=== PATIENT | female | born 1950 | race Caucasian/White ===

== ENCOUNTER 2020-08-25 13:47 | Emergency (ER) | payer OTHER, MEDICARE ==
[~2020-08-25] VITALS: Ht 177.8 cm; Wt 104.3 kg
--- OUTSIDE RECORDS SUMMARY | ~2020-08-25 | XMS | Encounter Summary ---
Demographics + + + | Address | [address] [place] [address] RD | | | [place] [address] | + + + | Home Phone | | + + + | Preferred Language | Unknown | + + + | Marital Status | | + + + | Methodist Affiliation | Unknown | + + + | Race | White | + + + | Ethnic Group | Not or | + + + Author + + + | Author | [facility] | | | and [place] | + + + | Organization | [facility] | | | and [place] | + + + | Address | Unknown | + + + | Phone | Unavailable | + + + Support + + + + + | Name | Relationship | Address | Phone | + + + + + | José Antonio Craig | ECON | [address] | | | | | [place], [place] | | | | | [address] | | + + + + + | José Antonio Craig | ECON | [address] | | | | | [place], [place] | | | | | [address] | | + + + + + Care Team Providers + +------+ + | Care Educational Psychology Professor Name | Role | Phone | + +------+ + | Alverto Olvera MD | PCP | | + +------+ + Encounter Details +--------+ + + + + | Date | Type | Department | Care Team | Description | +--------+ + + + + | 05/03/ | Hospital | [facility] | Antolin Mederos | | | 2012 | Encounter | MED CTR SLEEP | MD Brett [address] | | | | | [place] [address] | [place] [facility] | | | | | [place], [place] | [place] [address] | | | | | [address] | [phone] | | | | | [phone] | | | +--------+ + + + + Social History + +-------+ +--------+------+ | Tobacco Use | Types | Packs/Day | Years | Date | | | | | Used | | + +-------+ +--------+------+ | Never Smoker | | | | | + +-------+ +--------+------+ + +---+---+---+ | Smokeless Tobacco: | | | | | Never Used | | | | + +---+---+---+ + + +---------+ + | Alcohol Use | Drinks/Week | oz/Week | Comments | + + +---------+ + | Yes | | | Rare | + + +---------+ + + + + | Sex Assigned at | Date Recorded | | | | + + + | Not on file | | + + + documented as of this encounter Medications at Time of Discharge + + + +---------+--------+ + | Medication | Sig | Dispensed | Refills | Start | End Date | | | | | | Date | | + + + +---------+--------+ + | latanoprost | Place 1 drop into | | 0 | | | | (XALATAN) 0.005% | both eyes nightly. | | | | | | ophthalmic solution | | | | | | + + + +---------+--------+ + | Levothyroxine | Take 1 capsule by | | 0 | | | | Sodium 125 MCG CAPS | mouth every morning | | | | | | | (before breakfast). | | | | | + + + +---------+--------+ + | Multiple | Take 1 tablet by | | 0 | | | | Vitamins-Minerals | mouth Daily. | | | | | | (CENTRUM SILVER | | | | | | | ULTRA WOMENS PO) | | | | | | + + + +---------+--------+ + | omeprazole | Take 20 mg by mouth | | 0 | | | | (PRILOSEC) 20 mg | Daily as needed. | | | | | | capsule | | | | | | + + + +---------+--------+ + | aspirin 325 mg | Take 325 mg by mouth | | 0 | | | | tablet | Daily. | | | | 5 | + + + +---------+--------+ + | escitalopram | Take 10 mg by mouth | | 0 | | | | (LEXAPRO) 20 mg | Daily. | | | | 0 | | tablet | | | | | | + + + +---------+--------+ + | metoprolol | Take 100 mg by mouth | | 0 | | | | (TOPROL-XL) 100 MG | Daily. | | | | 0 | | 24 hr tablet | | | | | | + + + +---------+--------+ + documented as of this encounter Plan of Treatment +--------+---------+ + + + | Date | Type | Specialty | Care Team | Description | +--------+---------+ + + + | 09/20/ | Office | Sleep Medicine | Dominik Tijerina PA | | | 2019 | Visit | | [address] | | | | | | [place] | | | | | | [phone] | | | | | | | | +--------+---------+ + + + documented as of this encounter Visit Diagnoses Not on filedocumented in this encounter"
--- OUTSIDE RECORDS SUMMARY | ~2020-08-25 | XMS | Encounter Summary ---
Demographics + + + | Address | [address] [place] [address] RD | | | [place] [address] | + + + | Home Phone | | + + + | Preferred Language | Unknown | + + + | Marital Status | | + + + | Moravian Affiliation | Unknown | + + + | Race | White | + + + | Ethnic Group | Not or | + + + Author + + + | Author | [facility] | | | and [place] | + + + | Organization | [facility] | | | and [place] | + + + | Address | Unknown | + + + | Phone | Unavailable | + + + Support + + + + + | Name | Relationship | Address | Phone | + + + + + | José Antonio Craig | ECON | [address] | | | | | [place], [place] | | | | | [address] | | + + + + + | José Antonio Craig | ECON | [address] | | | | | [place], [place] | | | | | [address] | | + + + + + Care Team Providers + +------+ + | Care Slabbing Machine Operator Name | Role | Phone | + +------+ + | Alverto Olvera MD | PCP | | + +------+ + Reason for Visit + + + | Reason | Comments | + + + | Medication Refill | Apixaban | + + + Encounter Details +--------+--------+ + + + | Date | Type | Department | Care Team | Description | +--------+--------+ + + + | 06/19/ | Refill | [facility] | Parul Winn | Medication Refill | | 2020 | | CARDIOLOGY [place] | [address] | (Apixaban) | | | | [address] | [address] | | | | | [address] | [place] [address] | | | | | [place] | [phone] | | | | | [address] | | | | | | [phone] | | | +--------+--------+ + + + Social History + +-------+ +--------+------+ | Tobacco Use | Types | Packs/Day | Years | Date | | | | | Used | | + +-------+ +--------+------+ | Former Smoker | | 0.25 | | | + +-------+ +--------+------+ + +---+---+---+ | Smokeless Tobacco: | | | | | Never Used | | | | + +---+---+---+ + + | Comments: smoked only 2 years in college | + + + + +---------+ + | Alcohol Use | Drinks/Week | oz/Week | Comments | + + +---------+ + | Yes | | | Rare | + + +---------+ + + + + | Sex Assigned at | Date Recorded | | | | + + + | Not on file | | + + + documented as of this encounter Plan [...] [place] | | | | | | [phone] | | | | | | | | +--------+---------+ + + + documented as of this encounter Visit Diagnoses Not on filedocumented in this encounter"
--- OUTSIDE RECORDS SUMMARY | ~2020-08-25 | XMS | Encounter Summary ---
Demographics + + + | Address | [address] [place] [address] RD | | | [place] [address] | + + + | Home Phone | | + + + | Preferred Language | Unknown | + + + | Marital Status | | + + + | Scientology Affiliation | Unknown | + + + | Race | White | + + + | Ethnic Group | Not or | + + + Author + + + | Author | [facility] | | | and [place] | + + + | Organization | [facility] | | | and [place] | + + + | Address | Unknown | + + + | Phone | Unavailable | + + + Support + + + + + | Name | Relationship | Address | Phone | + + + + + | José Antonio Craig | ECON | [address] | | | | | [place], [place] | | | | | [address] | | + + + + + | José Antonio Craig | ECON | [address] | | | | | [place], [place] | | | | | [address] | | + + + + + Care Team Providers + +------+ + | Care Middle School Resource Teacher Name | Role | Phone | + +------+ + | Alverto Olvera MD | PCP | | + +------+ + Reason for Visit + + + | Reason | Comments | + + + | Medication Refill | Metoprolol | + + + Encounter Details +--------+--------+ + + + | Date | Type | Department | Care Team | Description | +--------+--------+ + + + | 12/31/ | Refill | [facility] | [facility], | Medication Refill | | 2020 | | CARDIOLOGY [place] | MD Paola ADAMSON | (Metoprolol) | | | | [address] | [place], [place] | | | | | [place], [place] | [address] | | | | | [address] | | | | | | [phone] | | | +--------+--------+ + + + [...] | Visit | | [address] | | | | | | [place] | | | | | | [phone] | | | | | | | | +--------+---------+ + + + documented as of this encounter Visit Diagnoses Not on filedocumented in this encounter"
--- OUTSIDE RECORDS SUMMARY | ~2020-08-25 | XMS | Encounter Summary ---
Demographics + + + | Address | [address] [place] [address] RD | | | [place] [address] | + + + | Home Phone | | + + + | Preferred Language | Unknown | + + + | Marital Status | | + + + | Mu-Ism Affiliation | Unknown | + + + | Race | White | + + + | Ethnic Group | Not or | + + + Author + + + | Author | [facility] | | | and [place] | + + + | Organization | [facility] | | | and [place] | + + + | Address | Unknown | + + + | Phone | Unavailable | + + + Support + + + + + | Name | Relationship | Address | Phone | + + + + + | José Antonio Craig | ECON | [address] | | | | | [place], [place] | | | | | [address] | | + + + + + | José Antonio Craig | ECON | [address] | | | | | [place], [place] | | | | | [address] | | + + + + + Care Team Providers + +------+ + | Care Fire Safety Inspector Name | Role | Phone | + +------+ + | Alverto Olvera MD | PCP | | + +------+ + Reason for Visit + +--------+ + | Reason | Onset | Comments | | | Date | | + +--------+ + | Medication Refill | 03/07/ | Metoprolol, Atorvastatin | | | 2020 | | + +--------+ + Encounter Details +--------+--------+ + + + | Date | Type | Department | Care Team | Description | +--------+--------+ + + + | 03/07/ | Refill | [facility] | Jamee Carson, | Medication Refill | | 2019 | | CARDIOLOGY [place] | [address] | (Metoprolol, | | | | [address] | [place] | Atorvastatin) | | | | [place] | [id number] | | | | | [address] | | | | | | [phone] | | | +--------+--------+ + + + [...] [place] | | | | | | [phone] | | | | | | | | +--------+---------+ + + + documented as of this encounter Visit Diagnoses Not on filedocumented in this encounter"
--- OUTSIDE RECORDS SUMMARY | ~2020-08-25 | XMS | Encounter Summary ---
Demographics + + + | Address | [address] [place] [address] Rd | | | [place] [address] | + + + | Home Phone | | + + + | Preferred Language | Unknown | + + + | Marital Status | | + + + | Quaker Affiliation | Unknown | + + + | Race | White | + + + | Ethnic Group | Not or | + + + Author + + + | Author | [facility] | + + + | Organization | [facility] | + + + | Address | Unknown | + + + | Phone | Unavailable | + + + Support + + +---------+ + | Name | Relationship | Address | Phone | + + +---------+ + | José Antonio Craig | ECON | Unknown | | + + +---------+ + Care Team Providers + +------+ + | Care Bird Raiser Name | Role | Phone | + +------+ + | Alverto Olvera MD | PCP | | + +------+ + Encounter Details +--------+ + + + + | Date | Type | Department | Care Team | Description | +--------+ + + + + | 01/28/ | Hospital | Registration [facility] | | | | 2017 | Encounter | [address] | | | | | | [place], | | | | | | [place] [address] | | | +--------+ + + + + Social History + +-------+ +--------+------+ | Tobacco Use | Types | Packs/Day | Years | Date | | | | | Used | | + +-------+ +--------+------+ | Never Assessed | | | | | + +-------+ +--------+------+ + + + | Sex Assigned at | Date Recorded | | | | + + + | Not on file | | + + + documented as of this encounter Medications at Time of Discharge + + + +---------+ + + | Medication | Sig | Dispensed | Refills | Start | End Date | | | | | | Date | | + + + +---------+ + + | apixaban 5 mg oral | Take by mouth. | | 0 | 03/07/20 | | | tablet | | | | 16 | | + + + +---------+ + + | dilTIAZem XR 24 | TAKE ONE CAPSULE BY | | 0 | 12/11/19 | | | hour release 120 mg | MOUTH ONCE DAILY | | | 17 | | | oral capsule,ext | | | | | | | release degradable | | | | | | + + + +---------+ + + documented as of this encounter Plan of Treatment Not on filedocumented as of this encounter Visit Diagnoses Not on filedocumented in this encounter"
--- OUTSIDE RECORDS SUMMARY | ~2020-08-25 | XMS | Encounter Summary ---
Demographics + + + | Address | [address] [place] [address] RD | | | [place] [address] | + + + | Home Phone | | + + + | Preferred Language | Unknown | + + + | Marital Status | | + + + | Yazidism Affiliation | Unknown | + + + | Race | White | + + + | Ethnic Group | Not or | + + + Author + + + | Author | [facility] | | | and [place] | + + + | Organization | [facility] | | | and [place] | + + + | Address | Unknown | + + + | Phone | Unavailable | + + + Support + + + + + | Name | Relationship | Address | Phone | + + + + + | José Antonio Craig | ECON | [address] | | | | | [place], [place] | | | | | [address] | | + + + + + | José Antonio Craig | ECON | [address] | | | | | [place], [place] | | | | | [address] | | + + + + + Care Team Providers + +------+ + | Care Core Blower Name | Role | Phone | + +------+ + | Alverto Olvera MD | PCP | | + +------+ + Reason for Visit + + + | Reason | Comments | + + + | CPAP Follow Up | | + + + Encounter Details +--------+---------+ + + + | Date | Type | Department | Care Team | Description | +--------+---------+ + + + | 08/20/ | Office | [facility] | Dominik Tijerina PA | ANTHONY on CPAP (Primary | | 2017 | Visit | SLEEP DISORDER [address] | [address] | Dx) | | | | [address] | [place] | | | | | [place] [address] | [id number] | | | | | [phone] | | | +--------+---------+ + + + Social History + +-------+ [...] + + documented as of this encounter Last Filed Vital Signs + + + + + | Vital Sign | Reading | Time Taken | Comments | + + + + + | Blood Pressure | 98/68 | 08/20/2017 1:39 PM | | | | | PDT | | + + + + + | Pulse | 82 | 08/20/2017 1:39 PM | | | | | PDT | | + + + + + | Temperature | - | - | | + + + + + | Respiratory Rate | 14 | 08/20/2017 1:39 PM | | | | | PDT | | + + + + + | Oxygen Saturation | 96% | 08/20/2017 1:39 PM | | | | | PDT | | + + + + + | Inhaled Oxygen | - | - | | | Concentration | | | | + + + + + | Weight | 96.3 kg (212 lb 4.8 | 08/20/2017 1:39 PM | | | | oz) | PDT | | + + + + + | Height | 175.3 cm (5' 9") | 08/20/2017 1:39 PM | | | | | PDT | | + + + + + | Body Mass Index | 31.35 | 08/20/2017 1:39 PM | | | | | PDT | | + + + + + documented in this encounter Progress Notes Dominik Tijerina PA - 08/20/2017 2:00 PM PDT Subjective: Patient ID: Carley Craig is a 67 y.o. female. HPI last office visit: 08/20/2016 date of polysomnography: 04/06/2013 AHI: 34.7 RDI: 55.5 O2%: 80% with 114.1 minutes below 88% Machine type: ResMed S9 Mask type: nasal mask DME: [facility] [place] pressure: 8-15 cm (increased from 8-10 cm) Median: 11.2 cm 95%: 13.4 cm maxium: 14.5 cm Nights using CPAP: 364/365 % of nights >4 hours: 99% average usage (all nights): 8:16 average usage (nights used): 8:16 AHI: 1.2 Carley comes in for CPAP compliance. She continues to do well with her CPAP. She is wear ing it on a nightly basis for the duration of the night. She does not consider sleeping wit hout it. She is replacing her equipment as needed. She has had her CPAP "freeze up" a few times. She has been able to get it to work again by unplugging and plugging it back in. It has worked fine after this. She is not overly concerned about this because this has always worked. We will consider replacing her machine at her next appointment. She does not have any questions or concerns. I have discussed the download and results of the paperwork in detail. The download shows t hat her sleep apnea is controlled, with an AHI of 1.2. It also shows that her leaks are con trolled. BP 98/68 | Pulse 82 | Resp 14 | Ht 1.753 m (5' 9") | Wt 96.3 kg (212 lb 4.8 oz) | SpO2 96% | BMI 31.35 kg/m Review of Systems Objective: Physical Exam Assessment: Problem #1: OBSTRUCTIVE SLEEP APNEA ([id number]) This is controlled with CPAP. Her CPAP compliance is going well. Plan: 1. She is to continue with CPAP indefinitely. 2. I have recommended that she touch base with her medical supplier twice per year to ensu re that her equipment is satisfactory. I will follow up again in 1 year, sooner prn. At that time we will reassess with all appro piate paperwork. Fifteen minutes were spent [id number]-[id number], with the majority of time spent i n counseling. Dominik Tijerina PA-C cc: Alverto Olvera MD Bethanie Brown, Top Printing Press Operator - 08/20/2017 2:00 PM PDTFormatting of this note might be different from the orig inal. 08/20/17 1300 Gandhi Depression Inventory-II Depression Score 0- No Depression Insomnia Severity Index Insomnia Severity Index 7 [place] Sleepiness Scale Sitting and reading 1 Watching TV 1 Sitting, inactive in a public place (e.g. a theatre or a meeting) 1 As a passenger in a car for an hour without a break 2 Lying down to rest in the afternoon when circumstances permit 1 Sitting and talking to someone 0 Sitting quietly after a lunch without alcohol 1 In a car, while stopped for a few minutes in traffic 0 Total score 7 SF-36v2 Score PF 51.8 RP 52.66 BP 50.71 GH 48.43 VT 52.6 SF 57.34 RE 56.17 MH 58.72 PCS 48.44 MCS 58.71 documented in this enco unter Plan of Treatment +--------+---------+ + + + | Date | Type | Specialty | Care Team | Description | +--------+---------+ + + + | 09/20/ | Office | Sleep Medicine | Dominik Tijerina PA | | | 2019 | Visit | | [address] | | | | | | [place] | | | | | | [address] | | | | | | | | +--------+---------+ + + + documented as of this encounter Visit Diagnoses + + | Diagnosis | + + | ANTHONY on CPAP - Primary Obstructive sleep apnea (adult) (pediatric) | + + documented in this encounter
--- OUTSIDE RECORDS SUMMARY | ~2020-08-25 | XMS | Encounter Summary ---
Demographics + + + | Address | [address] [place] [address] RD | | | [place] [address] | + + + | Home Phone | | + + + | Preferred Language | Unknown | + + + | Marital Status | | + + + | Faith Affiliation | Unknown | + + + [...] | José Antonio Craig | ECON | [address] | | | | | [place], [place] | | | | | [address] | | + + + + + | José Antonio Craig | ECON | [address] | | | | | [place], [place] | | | | | [address] | | + + + + + Care Team Providers + +------+ + | Care Drying Oven Tender Name | Role | Phone | + +------+ + | Alverto Olvera MD | PCP | | + +------+ + Reason for Referral Diagnostic/Screening (Routine) + +--------+ + + + + | Status | Reason | Specialty | Diagnoses / | Referred By | Referred To | | | | | Procedures | Contact | Contact | + +--------+ + + + + | Authorized | | Diagnostic | Diagnoses | Risa Denis | | | | Radiology | Chronic | MD Jamee | [facility] | | | | | atrial | [address] | | | | | fibrillation | [facility] | [facility] [facility] | | | | | (HCC) | [address] | [place] | | | | | Procedures | [place], [place] | [address] | | | | | ECHO | [address] | Phone: | | | | | Complete | Phone: | [phone] | | | | | | [phone] | Fax: | | | | | | Fax: | [phone] | | | | | | [phone] | | + +--------+ + + + + Reason for Visit + + + | Reason | Comments | + + + | Annual Exam | | + + + Encounter Details +--------+---------+ + + + | Date | Type | Department | Care Team | Description | +--------+---------+ + + + | 01/26/ | Office | [facility] | Jamee Denis, | Chronic atrial | | 2020 | Visit | CARDIOLOGY [facility]O | [address] | fibrillation (HCC) | | | | [address] | [address] [place], [place] | (Primary Dx) | | | | [address] [facility] | [address] | | | | | [place] | | | | | | [address] | | | | | | [phone] | | | +--------+---------+ + + + [...] + + + | Blood Pressure | 112/66 | 01/26/2020 3:03 PM | | | | | PST | | + + + + + | Pulse | 83 | 01/26/2020 3:03 PM | | | | | PST | | + + + + + | Temperature | - | - | | + + + + + | Respiratory Rate | - | - | | + + + + + | Oxygen Saturation | 95% | 01/26/2020 3:03 PM | | | | | PST | | + + + + + | Inhaled Oxygen | - | - | | | Concentration | | | | + + + + + | Weight | 106.1 kg (234 lb) | 01/26/2020 3:03 PM | | | | | PST | | + + + + + | Height | 177.8 cm (5' 10") | 01/26/2020 3:03 PM | | | | | PST | | + + + + + | Body Mass Index | 33.58 | 01/26/2020 3:03 PM | | | | | PST | | + + + + + documented in this encounter Progress Notes Jamee Denis MD - 01/26/2020 3:00 PM PSTFormatting of this note might be different f rom the original. Date of visit: 01/26/2020 Primary Care Physician: Alverto Olvera MD CHIEF COMPLAINT: Chief Complaint Patient presents with Annual Exam HISTORY OF PRESENT ILLNESS: Carley is 69 y.o. here for follow-up visit. History of chronic atrial fibrillation on ant icoagulation and rate control strategy. Since prior evaluation no change in medication. Hemodynamically stable. Denies any chest pain or shortness of breath. Dyspnea only with climbing the stairs. Modestly active without any cardiac limitation. Continues to be on anticoagulation with no complications. Past medical history, SH, FH, and medications were reviewed in the chart. Medications: Outpatient Encounter Medications as of 01/26/2020 Medication Sig Dispense Refill albuterol (VENTOLIN HFA) 90 mcg/puff inhaler Inhale 1 puff into the lungs Daily as need ed for Wheezing. [DISCONTINUED] albuterol 90 mcg/puff inhaler Ventolin HFA 90 mcg/actuation aerosol inha ler-- prn apixaban (ELIQUIS) 5 mg tablet Take 5 mg by mouth 2 times daily. atorvaSTATin (LIPITOR) 40 mg tablet Take 40 mg by mouth nightly. [DISCONTINUED] brimonidine (ALPHAGAN P) 0.15% ophthalmic solution brimonidine 0.15 % ey e drops cetirizine (ZYRTEC) 10 mg tablet Take 10 mg by mouth Daily as needed for Allergies. [DISCONTINUED] diltiazem (CARDIZEM) 120 MG tablet Take 120 mg by mouth Daily. dilTIAZem (DILT-XR) 120 mg 24 hr capsule TAKE 1 CAPSULE BY MOUTH ONCE DAILY dorzolamide (TRUSOPT) 2% ophthalmic solution Place 2 drops into the left eye 2 times da caprice. escitalopram (LEXAPRO) 10 mg tablet [DISCONTINUED] escitalopram (LEXAPRO) 20 mg tablet Take 10 mg by mouth Daily. latanoprost (XALATAN) 0.005% ophthalmic solution Place 1 drop into both eyes nightly. [DISCONTINUED] levothyroxine (SYNTHROID) 125 mcg tablet TAKE 1 TABLET BY MOUTH ONCE ANN LY 3 Levothyroxine Sodium 125 MCG CAPS Take 1 capsule by mouth every morning (before break). loratadine (CLARITIN) 10 mg tablet Take 10 mg by mouth Daily. metoprolol succinate (TOPROL-XL) 100 mg ER tablet Take 1 tablet by mouth Daily for 30 d ays. 30 tablet 0 Multiple Vitamins-Minerals (CENTRUM SILVER ULTRA WOMENS PO) Take 1 tablet by mouth Leonel y. omeprazole (PRILOSEC) 20 mg capsule Take 20 mg by mouth Daily as needed. [DISCONTINUED] Timolol Maleate 0.5 % (DAILY) SOLN as needed. UNCODED MEDICATION Convert CPAP to purchase for ANTHONY (327.23) 1 Device 0 UNCODED MEDICATION Diagnosis: Obstructive Sleep Apnea ICD-9: 327.23 Length of Need: 99 Months 1 Device 0 UNCODED MEDICATION Wear while sleeping. 1 Device 0 No facility-administered encounter medications on file as of 01/26/2020. Allergies No Known Allergies REVIEW OF SYSTEMS: Constitutional: negative for fatigue. No fever, chills, and rigors. No report of weight ch mayo. HEENT: Negative for nosebleeds, ear discharge, nasal congestion or soar throat. Eyes: Wears glasses, redness, or secretion. Respiratory: Negative for cough, sputum production, hemoptysis, wheezing. Cardiovascular: As HPI. Gastrointestinal: Negative for nausea, vomiting, diarrhea, abdominal pain and blood in stoo l. Genitourinary: Negative for dysuria or hematuria. Musculoskeletal: Chronic arthritic pain. Skin: Negative for rash. Neurological: Negative for dizziness. No numbness. No recent falls. No slurred speech. Hematological: No significant bruising. Psychiatric/Behavioral: No depression or anxiety. PHYSICAL EXAM Vital Signs: BP 112/66 | Pulse 83 | Ht 1.778 m (5' 10") | Wt 106.1 kg (234 lb) | SpO2 95% | BMI 33. 58 kg/m GENERAL APPEARANCE: Alert, oriented, cooperative, no distress, appears stated age. HEENT: Extraocular movements were intact. No jaundice. Pupiles round and reactive. NECK: No JVD, lymphadenopathy. Carotid upstrokes normal. No carotid bruit heard. CARDIAC: Irregular irregular. CHEST: Normal bilateral symmetrical chest excursion.ackles or wheezing. No evidence of dull ness. ABDOMEN: Soft.No tenderness or guarding. No palpable organs. Active bowel sounds. EXTREMITIES: No lower extremities edema, cyanosis or clubbing. NEURO: Alert and oriented times three with no focal deficit. Cranial nerves are grossly no rmal. SKIN: Warm and dry. No rash. Psych: Normal affect and mood. DATA Lab Results Component Value Date/Time NA 142 11/28/2017 11:40 AM K 4.3 11/28/2017 11:40 AM CO2 26 11/28/2017 11:40 AM BUN 13 11/28/2017 11:40 AM CALCIUM 10.1 11/28/2017 11:40 AM No results found for: WBC, HGB, HCT, MCV, LABPLAT Lab Results Component Value Date ALT 19 11/28/2017 CHOL 142 11/28/2017 TRIG 102 11/28/2017 HDL 54.8 11/28/2017 GLUF 86 11/28/2017 EC01/26/2020 Ordered and reviewed by myself showed atrial fibrillation with controlled ventricular rate. Last Echo: 2016: Reported withEF 60-65 percent. RV normal size and function. Moderate left atrial enla rgement. Mild ANGELICA. Mild to moderate MR. Mild TR. no pulmonary hypertension. Last Stress test: Last Cath: Last US carotid: ASSESSMENT: Patient is 69 y.o. with 1. Chronic atrial fibrillation on rate control strategy. CHADSVASc score of 3. 2. moderate mitral regurgitation. No signs of congestive heart failure. 3. Hypertension. 4. Dyslipidemia. Plan: Patient continues to be asymptomatic at this time. We will continue on rate control strateg y with diltiazem and metoprolol. Continue with atorvastatin. Continue with Apixaban. No change in medication today. Repeat echocardiogram to evaluate mitral regurgitation. Follow-up in 1 year or earlier if needed. *This report has been prepared using a voice recognition system. The report was reviewed fo r accuracy, however, sound-alike word errors, addition and/or deletions may occur. If there is any question about this report please contact me. Jamee Denis MD, MPH documented in this encounter Plan of Treatment +--------+---------+ + + + | Date | Type | Specialty | Care Team | Description | +--------+---------+ + + + | 09/20/ | Office | Sleep Medicine | Dominik Tijerina PA | | 2019 | Visit | | [address] | | | | | | [place] | | | | | | [id number] | | | | | | | | +--------+---------+ + + + + + +--------+ + + | Name | Type | Priori | Associated Diagnoses | Order Schedule | | | | ty | | | + + +--------+ + + | ECHO Complete | Echocardiog | Routin | Chronic atrial | Expected: | | | aries | e | fibrillation (HCC) | 01/26/2020, Expires: | | | | | | 01/26/2021 | + + +--------+ + + documented as of this encounter Procedures + +--------+ + + + | Procedure Name | Priori | Date/Time | Associated Diagnosis | Comments | | | ty | | | | + +--------+ + + + | ECG 12 LEAD | Routin | 01/26/2020 | Chronic atrial | Results for this | | | e | 3:12 PM | fibrillation (HCC) | procedure are in the | | | | PST | | results section. | + +--------+ + + + documented in this encounter Results ECG 12 lead (01/26/2020 3:12 PM PST) + + + + + + | Component | Value | Ref Range | Performed | Pathologist | | | | | At | Signature | + + + + + + | VENTRICULAR | 65 | BPM | [facility] | | | RATE EKG | | | | | + + + + + + | ATRIAL RATE | 63 | BPM | [facility] | | + + + + + + | QRS | 82 | ms | [facility] | | | DURATION | | | | | + + + + + + | Q-T | 372 | ms | [facility] | | | INTERVAL | | | | | + + + + + + | Q-T | 386 | ms | [facility] | | | INTERVAL | | | | | | (CORRECTED) | | | | | + + + + + + | QRS AXIS | 9 | degrees | [facility] | | + + + + + + | T AXIS | 25 | degrees | [facility] | | + + + + + + | INTERPRETAT | Atrial | | [facility] | | | ION TEXT | fibrillationAbnormal | | | | | | ECGWhen compared with | | | | | | ECG of 09-DEC-2018 | | | | | | 13:50,No significant | | | | | | change was | | | | | | foundConfirmed by | | | | | | Jamee Denis MD | | | | | | [id number]) on 01/27/2020 | | | | | | 4:31:50 PM | | | | + + + + + + + + | Specimen | + + | | + + + + + | Narrative | Performed At | + + + | | | + + + + +---------+ + + | Performing | Address | City/State/Zipcode | Phone Number | | Organization | | | | + +---------+ + + | [facility] | | | | + +---------+ + + documented in this encounter Visit Diagnoses + + | Diagnosis | + + | Chronic atrial fibrillation (HCC) - Primary Atrial fibrillation | + + documented in this encounter
--- OUTSIDE RECORDS SUMMARY | ~2020-08-25 | XMS | Encounter Summary ---
Demographics + + + | Address | [address] [place] [address] RD | | | [place] [address] | + + + | Home Phone | | + + + | Preferred Language | Unknown | + + + | Marital Status | | + + + | Anabaptism Affiliation | Unknown | + + + | Race | White | + + + | Ethnic Group | Not or | + + + Author + + + | Author | [facility] | | | and [place] | + + + | Organization | [facility] | | | and [place] | + + + | Address | Unknown | + + + | Phone | Unavailable | + + + Support + + + + + | Name | Relationship | Address | Phone | + + + + + | José Antonio Craig | ECON | [address] | | | | | [place], [place] | | | | | [address] | | + + + + + | José Antonio Craig | ECON | [address] | | | | | [place], [place] | | | | | [address] | | + + + + + Care Team Providers + +------+ + | Care Outside Machinist Supervisor Name | Role | Phone | + +------+ + | Alverto Olvera MD | PCP | | + +------+ + Encounter Details +--------+ + + + + | Date | Type | Department | Care Team | Description | +--------+ + + + + | 11/28/ | Orders Only | [facility] | Parul Winn | | | 2017 | | CARDIOLOGY [place] | DANIEL [address] | | | | | [address] | [address] | | | | | [place], [place] | [place] [address] | | | | | [address] | [phone] | | | | | [phone] | | | +--------+ + + + [...] | +--------+---------+ + + + | 09/20/ Office | Sleep Medicine | Dominik Tijerina PA | | | 2019 | Visit | | [address] | | | | | | [place] | | | | | | [address] | | | | | | | | +--------+---------+ + + + documented as of this encounter Procedures + +--------+ + + + | Procedure Name | Priori | Date/Time | Associated Diagnosis | Comments | | | ty | | | | + +--------+ + + + | LIPID PANEL | Routin | 11/28/2017 | | Results for this | | | e | 11:40 AM | | procedure are in the | | | | PST | | results section. | + +--------+ + + + | COMPREHENSIVE | Routin | 11/28/2017 | | Results for this | | METABOLIC PANEL | e | 11:40 AM | | procedure are in the | | | | PST | | results section. | + +--------+ + + + documented in this encounter Results Lipid Panel (11/28/2017 11:40 AM PST) + +-------+ + + + | Component | Value | Ref Range | Performed | Pathologist | | | | | At | Signature | + +-------+ + + + | Cholesterol | 142 | 200 mg/dL | EXTERNAL | | | | | | LAB | | + +-------+ + + + | Triglycerid | 102 | 30 - 150 mg/dL | EXTERNAL | | | es | | | LAB | | + +-------+ + + + | HDL | 54.8 | 40 mg/dl | EXTERNAL | | | | | | LAB | | + +-------+ + + + | LDL, | 67 | 100 mg/dL | EXTERNAL | | | Calculated | | | LAB | | + +-------+ + + + | LDl/HDL | | | EXTERNAL | | | Ratio | | | LAB | | + +-------+ + + + | Chol/HDL | 2.6 | 4.44 | EXTERNAL | | | Ratio | | | LAB | | + +-------+ + + + | VLDL | 20 | 4 - 40 mg/dL | EXTERNAL | | | | | | LAB | | + +-------+ + + + | Non HDL | 87 | 130 | EXTERNAL | | | Chol. | | | LAB | | | (LDL+VLDL) | | | | | + +-------+ + + + + + | Specimen | + + | Blood specimen | | (specimen) | + + + +---------+ + + | Performing | Address | City/State/Zipcode | Phone Number | | Organization | | | | + +---------+ + + | EXTERNAL LAB | | | | + +---------+ + + Comprehensive Metabolic Panel (11/28/2017 11:40 AM PST) + + + + + + | Component | Value | Ref Range | Performed | Pathologist | | | | | At | Signature | + + + + + + | Glucose, | 86 | 70 - 100 mg/dL | EXTERNAL | | | Fasting | | | LAB | | + + + + + + | BUN | 13 | 6 - 23 mg/dL | EXTERNAL | | | | | | LAB | | + + + + + + | Creatinine | 0.60 (A) | 0.70 - 1.25 | EXTERNAL | | | | | mg/dL | LAB | | + + + + + + | BUN/Creatin | 21.7 | 6.0 - 28.6 | EXTERNAL | | | ine Ratio | | | LAB | | + + + + + + | Calcium | 10.1 | 8.4 - 10.2 | EXTERNAL | | | | | mg/dL | LAB | | + + + + + + | Protein, | 6.1 | 6.0 - 8.0 g/dL | EXTERNAL | | | Total | | | LAB | | + + + + + + | Albumin | 4.0 | 3.5 - 5.0 | EXTERNAL | | | | | | LAB | | + + + + + + | Globulin | 2.1 | 1.8 - 3.5 | EXTERNAL | | | | | | LAB | | + + + + + + | A/G Ratio | 1.9 | 1.1 - 2.4 | EXTERNAL | | | | | | LAB | | + + + + + + | Bilirubin | 0.8 | 0.0 - 1.2 mg/dL | EXTERNAL | | | Total | | | LAB | | + + + + + + | ALP, | 88 | 31 - 130 | EXTERNAL | | | External | | | LAB | | + + + + + + | ALT | 19 | 7 - 52 U/L | EXTERNAL | | | | | | LAB | | + + + + + + | AST | 12 (A) | 13 - 39 U/L | EXTERNAL | | | | | | LAB | | + + + + + + | Na | 142 | 132 - 143 | EXTERNAL | | | | | mmol/L | LAB | | + + + + + + | K | 4.3 | 3.6 - 5.1 | EXTERNAL | | | | | mmol/L | LAB | | + + + + + + | Cl | 105 | 95 - 112 mmol/L | EXTERNAL | | | | | | LAB | | + + + + + + | CO2 | 26 | 19 - 31 mmol/L | EXTERNAL | | | | | | LAB | | + + + + + + | Anion Gap | 15.3 | 7 - 21 mmol/L | EXTERNAL | | | | | | LAB | | + + + + + + | Estimated | 99 | 60 mg/dL | EXTERNAL | | | GFR | | | LAB | | + + + + + + + + | Specimen | + + | Blood specimen | | (specimen) | + + + +---------+ + + | Performing | Address | City/State/Zipcode | Phone Number | | Organization | | | | + +---------+ + + | EXTERNAL LAB | | | | + +---------+ + + documented in this encounter Visit Diagnoses Not on filedocumented in this encounter"
--- OUTSIDE RECORDS SUMMARY | ~2020-08-25 | XMS | Encounter Summary ---
Demographics + + + | Address | [address] [place] [address] RD | | | [place] [address] | + + + | Home Phone | | + + + | Preferred Language | Unknown | + + + | Marital Status | | + + + | Anabaptism Affiliation | Unknown | + + + | Race | White | + + + | Ethnic Group | Not or | + + + Author + + + | Author | [facility] | | | and [place] | + + + | Organization | [facility] | | | and [place] | + + + | Address | Unknown | + + + | Phone | Unavailable | + + + Support + + + + + | Name | Relationship | Address | Phone | + + + + + | José Antonio Craig | ECON | [address] | | | | | [place], [place] | | | | | [address] | | + + + + + | José Antonio Craig | ECON | [address] | | | | | [place], [place] | | | | | [address] | | + + + + + Care Team Providers + +------+ + | Care Evp Operations Name | Role | Phone | + +------+ + | Alverto Olvera MD | PCP | | + +------+ + Reason for Visit +--------+ + | Reason | Comments | +--------+ + | Apnea | | +--------+ + Encounter Details +--------+---------+ + + + | Date | Type | Department | Care Team | Description | +--------+---------+ + + + | 05/17/ | Office | [facility] | Antolin Mederos | ANTHONY (obstructive | | 2012 | Visit | SLEEP DISORDER [address] | sleep apnea) | | | | [address] | [address] [place] | (Primary Dx) | | | | [place] [address] | [place] [address] | | | | | [phone] | [phone] | | | | | | | [...] + + + | Blood Pressure | 108/72 | 05/17/2013 2:34 PM | | | | | PDT | | + + + + + | Pulse | 70 | 05/17/2013 2:34 PM | | | | | PDT | | + + + + + | Temperature | - | - | | + + + + + | Respiratory Rate | 14 | 05/17/2013 2:34 PM | | | | | PDT | | + + + + + | Oxygen Saturation | - | - | | + + + + + | Inhaled Oxygen | - | - | | | Concentration | | | | + + + + + | Weight | 100.8 kg (222 lb 4.8 | 05/17/2013 2:34 PM | | | | oz) | PDT | | + + + + + | Height | - | - | | + + + + + | Body Mass Index | 32.83 | 03/18/2013 2:00 PM | | | | | PDT | | + + + + + documented in this encounter Patient Instructions Patient Instructions Antolin Mederos Jr., MD - 05/17/2013 2:41 PM PDTYou have Obstructive Sleep Apnea which we will treat with a CPAP night-time breathing machine. Try to wear the C PAP at all times while sleeping. 13 2:43 PM PDT documented in this encounter Progress Notes Antolin Mederos Jr., MD - 05/17/2013 2:48 PM PDTThe patient underwent PSG guided PAP Titr ation on 05/03/2013 where it appears that CPAP in the 8-9cm will control ANTHONY and oxygen desatu ration. I've discussed this with her. A: ANTHONY - I've briefly reviewed this again for her. The mechanisms of action of CPAP in carine ting ANTHONY were discussed in detail with the patient. I've discussed desensitization technique s as well as some imagery techniques that can be helpful. I've discussed the use of heated h umidity. And I've discussed our PAP Compliance Clinic. P: CPAP 8-10cm F/u in 2 days in PAP Compliance Clinic. Today, 15 minutes was spent face to face with the patient; the majority of time was spent bharathi eng. CC: Dr. Pérez Olvera documented in th is encounter Plan of Treatment +--------+---------+ + + + | Date | Type | Specialty | Care Team | Description | +--------+---------+ + + + | 09/20/ | Office | Sleep Medicine | Dominik Tijerina PA | | | 2019 | Visit | | [address] | | | | | | [place] | | | | | | [address] | | | | | | | | +--------+---------+ + + + documented as of this encounter Visit Diagnoses + + | Diagnosis | + + | ANTHONY (obstructive sleep apnea) - Primary Obstructive sleep apnea (adult) (pediatric) | + + documented in this encounter"
--- OUTSIDE RECORDS SUMMARY | ~2020-08-25 | XMS | Encounter Summary ---
Demographics + + + | Address | [address] [place] [address] RD | | | [place] [address] | + + + | Home Phone | | + + + | Preferred Language | Unknown | + + + | Marital Status | | + + + | Caodaism Affiliation | Unknown | + + + | Race | White | + + + | Ethnic Group | Not or | + + + Author + + + | Author | [facility] | | | and [place] | + + + | Organization | [facility] | | | and [place] | + + + | Address | Unknown | + + + | Phone | Unavailable | + + + Support + + + + + | Name | Relationship | Address | Phone | + + + + + | José Antonio Craig | ECON | [address] | | | | | [place], [place] | | | | | [address] | | + + + + + | José Antonio Craig | ECON | [address] | | | | | [place], [place] | | | | | [address] | | + + + + + Care Team Providers + +------+ + | Care Radio Recorder Name | Role | Phone | + +------+ + | Alverto Olvera MD | PCP | | + +------+ + Reason for Visit +---------+ + | Reason | Comments | +---------+ + | Snoring | | +---------+ + Encounter Details +--------+---------+ + + + | Date | Type | Department | Care Team | Description | +--------+---------+ + + + | 03/18/ | Office | [facility] | Antolin Mederos | ANTHONY (obstructive | | 2012 | Visit | SLEEP DISORDER [address] | [address] | sleep apnea) | | | | [address] | [address] | (Primary Dx); | | | | [place] [address] | [place] [address] | Anxiety; | | | | [phone] | [phone] | Hypothyroidism; HBP | | | | | | (high blood | | | | | | pressure); GERD | | | | | | (gastroesophageal | | | | | | reflux disease); | | | | | | Paroxysmal atrial | | | | | | fibrillation (HCC); | | | | | | Glaucoma; Colon | | | | | | polyps | +--------+---------+ + + + Social History [...] + + + | Blood Pressure | 124/72 | 03/18/2013 2:00 PM | | | | | PDT | | + + + + + | Pulse | 57 | 03/18/2013 2:00 PM | | | | | PDT | | + + + + + | Temperature | - | - | | + + + + + | Respiratory Rate | 14 | 03/18/2013 2:00 PM | | | | | PDT | | + + + + + | Oxygen Saturation | - | - | | + + + + + | Inhaled Oxygen | - | - | | | Concentration | | | | + + + + + | Weight | 98.6 kg (217 lb 4.8 | 03/18/2013 2:00 PM | | | | oz) | PDT | | + + + + + | Height | 175.3 cm (5' 9") | 03/18/2013 2:00 PM | | | | | PDT | | + + + + + | Body Mass Index | 32.09 | 03/18/2013 2:00 PM | | | | | PDT | | + + + + + documented in this encounter Patient Instructions Patient Instructions Bethanie Sanches - 03/18/2013 2:00 PM PDT March 18, 2013 Carley Craig [address] [place] [address] Dear Carley: Thank you for enrolling in [employer]. Please follow the instructions below to view your [facility] online medical record. [employer] allows you to send secure messages to your doctor, view you r test results, renew your prescriptions, schedule appointments, and more. How Do I Sign Up? 1. In your Internet browser, go to [email or web address] 2. Click on the "Sign up with your activation code" button in the "New User?" box. This belgica l take you to the New Member Sign Up page. 3. Enter your [employer] activation code exactly as it appears below. You will not need to use this code after you sign up. If you do not sign up before the expiration date, you must req uest a new code through your [place] or [place] participating clinic. [employer] Access Code: [email or web address] Expires: 05/17/2013 14:00 4. Fill in the last four digits of your Social Security Number (xxxx) and Date of (mm /dd/yyyy) and click Next. 5. Create a [place] [employer] username. Your username cannot be changed, so think of one t hat is secure and easy to remember. 6. Create a [employer] password. You can change your password at any time. 7. Enter your security question and answer. This can be used at a later time if you forget your password. Click Next. 8. Enter your e-mail address. You will receive e-mail notification when new information is available in [employer]. 9. Click "Sign In". You may now view your medical record. Additional Information If you have questions, you can email [email or web address] or call [phone] to talk to our [place] care team. Please remember, [employer] should NOT be used for urg ent needs. For all medical emergencies, call [phone]. Sincerely, Antolin Mederos Jr., MD I think you probably have Obstructive Sleep Apnea for which we will arrange for an overnigh t sleep study. During NREM (nondream) sleep the skeletal muscles relax and in REM (dream) sleep the skelet al muscles are paralyzed. The muscles that support the back of the throat (the tongue in par ticular) also relax during NREM sleep and are paralyzed in REM sleep and when this occurs, t he back of the throat collapses some. In some patients with a smaller back of the throat, th is can result in obstruction to the flow of air. This is fundamentally what occurs in ANTHONY. T his can cause repetitive obstruction to the flow of air all night long cause a person with O SA to awaken repeatedly at night to "open" the back of the throat. If airflow is significant ly restricted, blood oxygen levels can fall. The combination of the repetitive awakenings at night and low oxygen levels lead to numerous other physiologic abnormalities which can resu lt in nocturia, nocturnal heartburn, night sweats, morning dry mouth, morning headache, and daytime fatigue/sleepiness. Additionally, ANTHONY can cause hypertension and it dramatically inc reases the risk of heart disease, heart attack, and stroke. It may play a causative role in obesity and AODM. Untreated ANTHONY also dramatically increases the risk of fall asleep car acci dents. Treatment can help with all of these issues. documented in this encounter Progress Notes Antolin Mederos Jr., MD - 03/18/2013 2:17 PM PDTFormatting of this note might be differen t from the original. Racquel Kristin [facility] [place] [address] Ref: Alverto Olvera, * CC: Chief Complaint Patient presents with Snoring History of the Present Illness:This is a 62 year old female who is referred for sleep medic ine consultation by Dr. Pérez Olvera because of snoring and possible ANTHONY. Other significant me dical issues include paroxysmal atrial fibrillation, HBP, hypothyroidism, astham, osteopenia , and GERD. The patient's records (from Dr. Olvera office) are reviewed. The patient is int erviewed and examined. 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 Bedtime is usually about 10p m and rise time is about 6:30am. On off days she might awaken at 8:30am. She estimates a lat ency to sleep onset of 1-2 hours. She has nocturia at least 2-3 times a night and she can us ually get back to sleep rather easily. She does have night sweats. She rarely has nocturnal heartburn. She sometimes awakens with a dry mouth and she does awaken with nasal/sinus conge stion which she attributes to allergies. She occasionally awakes with morning headaches. She dreams in her sleep. She does sometimes seem to dream immediately upon falling asleep. She doesn't walk in her sleep (she did as a child). She denies dream enactment while asleep. She denies sleep paralysis. She denies restlessness in her legs or arms at night. Her has never told her that h er legs or arms kick or twitch rhythmically at night after she falls asleep. She does snore. He hasn't told her that she stops breathing at night. She thinks the snorin g is worse when she sleeps supine. She has awakened herself snoring and snorting. In the daytime she feels sleepy and tired. She occasionally naps on weekends. If she naps s he might sleep 2 hours and this makes her feel better after a while but initially she feels groggy upon awakening. She gets drowsy driving but has never been in a fall asleep accident. She denies cataplexy. She consumes caffeine rarely. She first developed an episode of atrial fibrillation in about 2004. She had another episod e in May of 2012. Past Medical History: has a past medical history of Paroxysmal atrial fibrillation; GERD ( gastroesophageal reflux disease); HBP (high blood pressure); ANTHONY (obstructive sleep apnea); Anxiety; Hypothyroidism; Glaucoma; and Colon polyps. has past surgical history that includes Tonsillectomy and adenoidectomy (1954); Appendecto my (1960); tyra and bso (1998); Thyroidectomy (2004); and Cataract Removal (2010). No Known Allergies Current Outpatient Prescriptions Medication Sig Dispense Refill Levothyroxine Sodium 125 MCG CAPS Take 1 capsule by mouth every morning (before breakfa st). metoprolol (TOPROL-XL) 100 MG 24 hr tablet Take 100 mg by mouth Daily. escitalopram (LEXAPRO) 20 mg tablet Take 10 mg by mouth Daily. omeprazole (PRILOSEC) 20 mg capsule Take 20 mg by mouth every morning (before breakfast ). latanoprost (XALATAN) 0.005% ophthalmic solution Place 1 drop into both eyes nightly. aspirin 325 mg tablet Take 325 mg by mouth Daily. Multiple Vitamins-Minerals (CENTRUM SILVER ULTRA WOMENS PO) Take 1 tablet by mouth Leonel y. Family Medical History: family history includes Arthritis in her brother; Diabetes in her m other; and Other (See Comment) in her brother. indicated that her mother is . She indicated that her father is . She indic ated that her sister is . She indicated that her brother is alive. She indicated tejas t both of her sons are alive. 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 Weight gain 20-30 pounds over last several years. Eyes:Denies sudden loss of vision, diplopia, blurred vision. ENT: Denies vertigo, bleeding gums or poor dental repair. Gradual loss of hearing and ti nnitus in left ear (hearing aid). Nasal/sinus stuffiness. Card:Denies exertional substernal chest heaviness, leg pain. Resp: Allergic asthma. GI: Denies nausea, vomiting, abdominal pain, diarrhea, constipation, hematochezia. Has rey d colon polyps. : Denies dysuria, pyuria, hematuria, frequency, incontinence MS: Right hip pain and mild back pain. Neuro: Denies seizures, strokes, loss of consciousness, dysesthesias or paresthesias, syn cope, concussions. Psych: Denies: Depression/anxiety in control. Endocrine: Denies heat or cold intolerance Heme: Denies easy bruising or prolonged bleeding. Allergic/Immunologic: seasonal allergies PE: BP 124/72 | Pulse 57 | Resp 14 | Ht 1.753 m (5' 9") | Wt 98.567 kg (217 lb 4.8 oz) | BM I 32.09 kg/m2 Gen: obese, alert and not in acute distress HEENT:Head: Normocephalic, no lesions, without obvious abnormality. Eye: Normal external eye, conjunctiva, lids cornea, MARY. Nose: Normal external nose, mucus membranes and septum. Pharynx: Dental Hygiene adequate. Normal buccal mucosa. Tonsillar grade 0; Mallampati 2-3. Neck / Thyroid: Supple, no masses, nodes, nodules or enlargement. Pulm: lungs clear to auscultation Card: regular rate and rhythm, S1, S2 normal, no murmur, click, rub or gallop GI: soft and normal bowel sounds : Not examined Rectal: Not Examined Ext: peripheral pulses normal, no pedal edema, no clubbing or cyanosis Skin: Not examined Neuro:Grossly normal Psych:age appropriate and casually dressedoriented to time, place and person, mood and aff ect are within normal limits, pt is a good historian; no memory problems were noted Heme: No cervical LN Assessment: ANTHONY: I suspect that the patient likely has ANTHONY and that much of her daytime sle epiness and fatigue is related to this. I've discussed this with her in detail. This may als o be playing a role in her Paroxysmal Atrial Fibrillation. I've discussed PSG. And I've disc ussed treatment options, emphasizing CPAP. Paroxysmal Atrial Fibrillation: Untreated ANTHONY is likely contributin g to this. Plan: PSG with f/u thereafter. Today, 45 minutes was spent face to face with the patient; the majority of time was spent c ounseling. CC: Dr. Pérez Olvera Patient Instructions March 18, 2013 Carley Craig [address] [facility] [place] [address] Dear Carley: Thank you for enrolling in [employer]. Please follow the instructions below to view your [facility] online medical record. [employer] allows you to send secure messages to your doctor, view you r test results, renew your prescriptions, schedule appointments, and more. How Do I Sign Up? 1. In your Internet browser, go to [email or web address] 2. Click on the "Sign up with your activation code" button in the "New User?" box. This belgica l take you to the New Member Sign Up page. 3. Enter your [employer] activation code exactly as it appears below. You will not need to use this code after you sign up. If you do not sign up before the expiration date, you must req uest a new code through your [place] or [place] participating clinic. [employer] Access Code: [email or web address] Expires: 05/17/2013 14:00 4. Fill in the last four digits of your Social Security Number (xxxx) and Date of (mm /dd/yyyy) and click Next. 5. Create a [place] [employer] username. Your username cannot be changed, so think of one t hat is secure and easy to remember. 6. Create a [employer] password. You can change your password at any time. 7. Enter your security question and answer. This can be used at a later time if you forget your password. Click Next. 8. Enter your e-mail address. You will receive e-mail notification when new information is available in [employer]. 9. Click "Sign In". You may now view your medical record. Additional Information If you have questions, you can email [email or web address] or call [phone] to talk to our [place] care team. Please remember, [employer] should NOT be used for urg ent needs. For all medical emergencies, call [phone]. Sincerely, Antolin Mederos Jr., MD I think you probably have Obstructive Sleep Apnea for which we will arrange for an overnigh t sleep study. During NREM (nondream) sleep the skeletal muscles relax and in REM (dream) sleep the skelet al muscles are paralyzed. The muscles that support the back of the throat (the tongue in par ticular) also relax during NREM sleep and are paralyzed in REM sleep and when this occurs, t he back of the throat collapses some. In some patients with a smaller back of the throat, th is can result in obstruction to the flow of air. This is fundamentally what occurs in ANTHONY. T his can cause repetitive obstruction to the flow of air all night long cause a person with O SA to awaken repeatedly at night to "open" the back of the throat. If airflow is significant ly restricted, blood oxygen levels can fall. The combination of the repetitive awakenings at night and low oxygen levels lead to numerous other physiologic abnormalities which can resu lt in nocturia, nocturnal heartburn, night sweats, morning dry mouth, morning headache, and daytime fatigue/sleepiness. Additionally, ANTHONY can cause hypertension and it dramatically inc reases the risk of heart disease, heart attack, and stroke. It may play a causative role in obesity and AODM. Untreated ANTHONY also dramatically increases the risk of fall asleep car acci dents. Treatment can help with all of these issues. imon, Antolin Salgado Jr., MD - 03/18/2013 2:17 PM PDTFormatting of this note might be different from the origin al. 03/18/13 1400 Gandhi Depression Inventory-II Depression Score 4 - Minimal depression Insomnia Severity Index Insomnia Severity Index 12 [place] Sleepiness Scale Sitting and reading 2 Watching TV 2 Sitting, inactive in a public place (e.g. a theatre or a meeting) 3 As a passenger in a car for an hour without a break 3 Lying down to rest in the afternoon when circumstances permit 3 Sitting and talking to someone 0 Sitting quietly after a lunch without alcohol 2 In a car, while stopped for a few minutes in traffic 0 Total score 15 SF-36v2 Score PF 48.61 RP 54.4 BP 46.06 GH 38.63 VT 39.6 SF 56.85 RE 48.1 MH 47.19 PCS 47.5 MCS 47.54 documented in t his encounter Miscellaneous Notes Miscellaneous - RENE WEI BENNY - 03/18/2013 12:00 AM PDT documented in this encounter Plan of Treatment +--------+---------+ + + + | Date | Type | Specialty | Care Team | Description | +--------+---------+ + + + | 09/20/ | Office | Sleep Medicine | Dominik Tijerina PA | | | 2019 | Visit | | [address] | | | | | | [place] | | | | | | [id number] | | | | | | | | +--------+---------+ + + + documented as of this encounter Visit Diagnoses + + | Diagnosis | + + | ANTHONY (obstructive sleep apnea) - Primary Obstructive sleep apnea (adult) (pediatric) | + + | Anxiety Anxiety state, unspecified | + + | Hypothyroidism Unspecified hypothyroidism | + + | HBP (high blood pressure) Unspecified essential hypertension | + + | GERD (gastroesophageal reflux disease) Esophageal reflux | + + | Paroxysmal atrial fibrillation (HCC) Atrial fibrillation | + + | Glaucoma Unspecified glaucoma | + + | Colon polyps Benign neoplasm of colon | + + documented in this encounter
--- OUTSIDE RECORDS SUMMARY | ~2020-08-25 | XMS | Clinical Summary ---
Demographics + + + | Address | [address] [place] [address] RD | | | [place] [address] | + + + | Home Phone | | + + + | Preferred Language | Unknown | + + + | Marital Status | | + + + | Jainism Affiliation | Unknown | + + + | Race | White | + + + | Ethnic Group | Not or | + + + Author + + + | Author | [facility] | | | and [place] | + + + | Organization | [facility] | | | and [place] | + + + | Address | Unknown | + + + | Phone | Unavailable | + + + Support + + + + + | Name | Relationship | Address | Phone | + + + + + | José Antonio Craig | ECON | [address] | | | | | [place], [place] | | | | | [address] | | + + + + + | José Antonio Craig | ECON | [address] | | | | | [place], [place] | | | | | [address] | | + + + + + Care Team Providers + +------+ + | Care Public Welfare Director Name | Role | Phone | + +------+ + | Alverto Olvera MD | PCP | | + +------+ + Allergies No Known Allergies Medications + + + +---------+------+------+-------+ | Medication | Sig | Dispensed | Refills | Star | End | Statu | | | | | | t | Date | s | | | | | | Date | | | + + + +---------+------+------+-------+ | Levothyroxine | Take 1 capsule by | | 0 | | | Activ | | Sodium 125 MCG CAPS | mouth every morning | | | | | e | | | (before breakfast). | | | | | | + + + +---------+------+------+-------+ | omeprazole | Take 20 mg by mouth | | 0 | | | Activ | | (PRILOSEC) 20 mg | Daily as needed. | | | | | e | | capsule | | | | | | | + + + +---------+------+------+-------+ | latanoprost | Place 1 drop into | | 0 | | | Activ | | (XALATAN) 0.005% | both eyes nightly. | | | | | e | | ophthalmic solution | | | | | | | + + + +---------+------+------+-------+ | Multiple | Take 1 tablet by | | 0 | | | Activ | | Vitamins-Minerals | mouth Daily. | | | | | e | | (CENTRUM SILVER | | | | | | | | ULTRA WOMENS PO) | | | | | | | + + + +---------+------+------+-------+ | UNCODED | Wear while sleeping. | 1 | 0 | 06/1 | | Activ | | MEDICATIONIndication | | Device | | 20 | | e | | s: ANTHONY (obstructive | | | | 13 | | | | sleep apnea) | | | | | | | + + + +---------+------+------+-------+ | UNCODED | Diagnosis: | 1 | 0 | 07/0 | | Activ | | MEDICATIONIndication | Obstructive Sleep | Device | | 07/20 | | e | | s: Obstructive sleep | ApneaICD-9: | | | 13 | | | | apnea (adult) | 327.23Length of | | | | | | | (pediatric) | Need: 99 Months | | | | | | + + + +---------+------+------+-------+ | UNCODED MEDICATION | Convert CPAP to | 1 | 0 | 08/2 | | Activ | | | purchase for ANTHONY | Device | | 7/20 | | e | | | (327.23) | | | 13 | | | + + + +---------+------+------+-------+ | cetirizine | Take 10 mg by mouth | | 0 | | | Activ | | (ZYRTEC) 10 mg | Daily as needed for | | | | | e | | tablet | Allergies. | | | | | | + + + +---------+------+------+-------+ | dorzolamide | Place 2 drops into | | 0 | | | Activ | | (TRUSOPT) 2% | the left eye 2 times | | | | | e | | ophthalmic solution | daily. | | | | | | + + + +---------+------+------+-------+ | albuterol | Inhale 1 puff into | | 0 | | | Activ | | (VENTOLIN HFA) 90 | the lungs Daily as | | | | | e | | mcg/puff inhaler | needed for Wheezing. | | | | | | + + + +---------+------+------+-------+ | escitalopram | | | 0 | 05/0 | | Activ | | (LEXAPRO) 10 mg | | | | 6/20 | | e | | tablet | | | | 19 | | | + + + +---------+------+------+-------+ | loratadine | Take 10 mg by mouth | | 0 | | | Activ | | (CLARITIN) 10 mg | Daily. | | | | | e | | tablet | | | | | | | + + + +---------+------+------+-------+ | metoprolol | Take 1 tablet by | 90 | 3 | 04/0 | 04/0 | Activ | | succinate | mouth Daily. | tablet | | /20 | /20 | e | | (TOPROL-XL) 100 mg | | | | 20 | 21 | | | ER tablet | | | | | | | + + + +---------+------+------+-------+ | atorvaSTATin | Take 1 tablet by | 90 | 3 | 04/0 | 04/0 | Activ | | (LIPITOR) 40 mg | mouth nightly. | tablet | | / | 06/19 | e | | tablet | | | | 20 | 21 | | + + + +---------+------+------+-------+ | dilTIAZem | Take 1 capsule by | 90 | 3 | 2 | 2 | Activ | | (DILT-XR) 120 mg 24 | mouth Daily. | capsule | | 08/20 | 08/20 | e | | hr capsule | | | | 20 | 21 | | + + + +---------+------+------+-------+ | apixaban (ELIQUIS) | Take 1 tablet by | 180 | 3 | 06/01 | 2 | Activ | | 5 mg tablet | mouth 2 times daily. | tablet | | 12/20 | 12/20 | e | | | | | | 20 | 21 | | + + + +---------+------+------+-------+ Active Problems + + + | Problem | Noted Date | + + + | Calculus of gallbladder with cholecystitis | 06/28/2019 | + + + | Dyspeptic diarrhea | 06/28/2019 | + + + | Hypercalcemia | 06/28/2019 | + + + | Mild intermittent asthma without complication | 06/16/2017 | + + + | Acquired hypothyroidism | 06/16/2017 | + + + | Obstructive sleep apnea on CPAP | 06/16/2017 | + + + | Chronic atrial fibrillation | 06/16/2017 | + + + | Pseudophakia, both eyes | 03/14/2017 | + + + | Low tension glaucoma | 03/14/2017 | + + + | Essential hypertension | 08/31/2015 | + + + + + | Overview: Last Assessment & Plan: Hypertension, controlled, | | continue current meds at current doses (diltiazem, metoprolol). | + + + +---+ | ANTHONY (obstructive sleep apnea) | | + +---+ | Anxiety | | + +---+ | Hypothyroidism | | + +---+ | HBP (high blood pressure) | | + +---+ | GERD (gastroesophageal reflux disease) | | + +---+ | Paroxysmal atrial fibrillation | | + +---+ | Glaucoma | | + +---+ | Colon polyps | | + +---+ Encounters +--------+---------+ + + + | Date | Type | Specialty | Care Team | Description | +--------+---------+ + + + | 07/18/ | Office | Sleep Medicine | Dominik Tijerina PA | ANTHONY on CPAP (Primary | | 2019 | Visit | | | Dx) | +--------+---------+ + + + | 06/19/ | Refill | Cardiology | Parul Winn | Medication Refill | | 2019 | | | DANIEL Azevedo | (Apixaban) | +--------+---------+ + + + | 05/28/ | Refill | Cardiology | Jamee Carson, | Medication Refill | | 2019 | | | | (Diltiazem) | +--------+---------+ + + + from Last 3 Months Immunizations + + + + | Name | Administration Dates | Next Due | + + + + | INFLUENZA 64 Y [place] >, | 09/15/2018 | | | TRIVALENT HIGH-DOSE | | | + + + + | PNEUMOCOCCAL | 04/04/2016 | | | POLYSACCHARIDE | | | | 23-VALENT (PPSV23) | | | + + + + Family History + + +------+ + | Medical History | Relation | Name | Comments | + + +------+ + | Arthritis | Brother | | | + + +------+ + | Other (see comment) | Brother | | ANTHONY on CPAP | + + +------+ + | Heart failure | Father | | | + + +------+ + | Atrial fibrillation | Mother | | | + + +------+ + | Diabetes | Mother | | | + + +------+ + | Diabetes, NIDDM | Mother | | | + + +------+ + | Stroke | Mother | | | + + +------+ + | Heart disease | Paternal | | | | | Grandfath | | | | | er | | | + + +------+ + | Heart disease | Paternal | | | | | Grandmoth | | | | | er | | | + + +------+ + + +------+ + + | Relation | Name | Status | Comments | + +------+ + + | Brother | | Alive | | + +------+ + + | Father | | | IA, heart failure | | | | (Age | | | | | 66) | | + +------+ + + | Mother | | | A-Fib., DMII, CVA | | | | (Age | | | | | 85) | | + +------+ + + | Paternal Grandfather | | | heart disease | | | | (Age | | | | | 82) | | + +------+ + + | Paternal Grandmother | | | heart disease | | | | (Age | | | | | 72) | | + +------+ + + | Sister | | | leukemia | | | | (Age | | | | | 13) | | + +------+ + + | Son | | Alive | | + +------+ + + | Son | | Alive | | + +------+ + + Social History + +-------+ +--------+------+ [...] on file | | + + + Last Filed Vital Signs + + + + + | Vital Sign | Reading | Time Taken | Comments | + + + + + | Blood Pressure | 126/70 | 07/18/2020 3:10 PM | | | | | PDT | | + + + + + | Pulse | 89 | 07/18/2020 3:10 PM | | | | | PDT | | + + + + + | Temperature | - | - | | + + + + + | Respiratory Rate | 16 | 07/18/2020 3:10 PM | | | | | PDT | | + + + + + | Oxygen Saturation | 97% | 07/18/2020 3:10 PM | | | | | PDT | | + + + + + | Inhaled Oxygen | - | - | | | Concentration | | | | + + + + + | Weight | 104.3 kg (229 lb 15 | 07/18/2020 3:10 PM | | | | oz) | PDT | | + + + + + | Height | 177.8 cm (5' 10") | 01/26/2020 3:03 PM | | | | | PST | | + + + + + | Body Mass Index | 32.99 | 01/26/2020 3:03 PM | | | | | PST | | + + + + + Plan of Treatment +--------+---------+ + + + | Date | Type | Specialty | Care Team | Description | +--------+---------+ + + + | 09/20/ | Office | Sleep Medicine | Dominik Tijerina PA | | | 2019 | Visit | | [address] | | | | | | [place] | | | | | | [address] | | | | | | | | +--------+---------+ + + + + + + + + | Health Maintenance | Due Date | Last | Comments | | | | Done | | + + + + + | Hepatitis C | | | | | Screening | 9 | | | + + + + + | Med Mgmt: HCT | | | | | | 9 | | | + + + + + | Med Mgmt: HGB | | | | | | 9 | | | + + + + + | Med Mgmt: TSH | | | | | | 9 | | | + + + + + | Medication | | | | | Management | 9 | | | + + + + + | Vaccine: | | | | | Dtap/Tdap/Td (1 - | 8 | | | | Tdap) | | | | + + + + + | Colorectal Cancer | | | | | Screening | 9 | | | | (Colonoscopy) | | | | + + + + + | Vaccine: Zoster (1 | | | | | of 2) | 9 | | | + + + + + | Breast Cancer | | | | | Screening | 4 | | | + + + + + | Adult Annual | | | | | Wellness Visit | 5 | | | + + + + + | Med Mgmt: Cr | | 11/28/20 | | | | 8 | 17 | | + + + + + | Vaccine: Influenza | | 10/18/20 | | | (#1) | 0 | 19, | | | | | 09/15/20 | | | | | 18 | | + + + + + | Vaccine: | Completed | 04/04/20 | | | Pneumococcal 65+ | | 16 | | + + + + + Results Not on filefrom Last 3 Months Insurance + +--------+ +--------+ +---------+--------+ | Payer | Benefi | Subscriber | Effect | Phone | Address | Type | | | t Plan | ID | micaela | | | | | | / | | Dates | | | | | | Group | | | | | | + +--------+ +--------+ +---------+--------+ | MEDICARE | MEDICA | [id number] | 03/01/20 | [phone] | | Medica | | | RE | | 14-Pre | 5 | | re | | | PART A | | sent | | | | | | AND B | | | | | | + +--------+ +--------+ +---------+--------+ | STATE [employer] | STATE | [id number] | 08/02/20 | [phone] | | Indemn | | | FARM | 7 | 14-Pre | 2 | | ity | | | MDCR | | sent | | | | | | SUPPL | | | | | | + +--------+ +--------+ +---------+--------+ | MEDICARE | MEDICA | [id number] | 03/01/20 | [phone] | | Medica | | | RE | | 14-Pre | 5 | | re | | | PART A | | sent | | | | | | AND B | | | | | | + +--------+ +--------+ +---------+--------+ | STATE [employer] | STATE | [id number] | 03/01/20 | [phone] | | Indemn | | | FARM | 7 | 14-Pre | 2 | | ity | | | MDCR | | sent | | | | | | SUPPL | | | | | | + +--------+ +--------+ +---------+--------+ + +--------+ +--------+ + + | Guarantor Name | Accoun | Relation to | Date | Phone | Billing Address | | | t Type | Patient | of | | | | | | | | | | + +--------+ +--------+ + + | Carley Craig | Person | Self | [birth year] | [address] | | | al/Fam | | 1950 | [phone] | [place], [place] | | | caprice | | | 1 (Home) | [address] | | | | | | [phone] | | | | | | | 9 (Work) | | + +--------+ +--------+ + + | Carley Craig | Person | Self | [birth year] | | [address] | | | al/Fam | | 1950 | [phone] | [place], [place] | | | caprice | | | 1 (Home) | [address] | | | | | | [phone] | | | | | | | 9 (Work) | | + +--------+ +--------+ + + Advance Directives + + + + + | Type | Date Recorded | Patient | Explanation | | | | Cushion Filler | | + + + + + | Power of | | | | | Shampoo Assistant | | | | + + + + + | Advance | | | | | Directive | | | | + + + + +
--- OUTSIDE RECORDS SUMMARY | ~2020-08-25 | XMS | Encounter Summary ---
Demographics + + + | Address | [address] [place] [address] RD | | | [place] [address] | + + + | Home Phone | | + + + | Preferred Language | Unknown | + + + | Marital Status | | + + + | Anabaptism Affiliation | Unknown | + + + | Race | White | + + + | Ethnic Group | Not or | + + + Author + + + | Author | [facility] | | | and [place] | + + + | Organization | [facility] | | | and [place] | + + + | Address | Unknown | + + + | Phone | Unavailable | + + + Support + + + + + | Name | Relationship | Address | Phone | + + + + + | José Antonio Craig | ECON | [address] | | | | | [place], [place] | | | | | [address] | | + + + + + | José Antonio Craig | ECON | [address] | | | | | [place], [place] | | | | | [address] | | + + + + + Care Team Providers + +------+ + | Care Director Of Nurses Registry Name | Role | Phone | + +------+ + | Alverto Olvera MD | PCP | | + +------+ + Reason for Visit + + + | Reason | Comments | + + + | Medication Refill | Atorvastatin | + + + Encounter Details +--------+--------+ + + + | Date | Type | Department | Care Team | Description | +--------+--------+ + + + | 02/27/ | Refill | [facility] | Campos Pabon, | Medication Refill | | 2020 | | [facility]ARDIOLOGY [facility] | [address] | (Atorvastatin) | | | | [address] | [place] [address] | | | | | [place], [place] | [phone] | | | | | [address] | | | | | | [phone] | | | +--------+--------+ + + + [...] [place] | | | | | | [id number] | | | | | | | | +--------+---------+ + + + documented as of this encounter Visit Diagnoses Not on filedocumented in this encounter"
--- OUTSIDE RECORDS SUMMARY | ~2020-08-25 | XMS | Encounter Summary ---
Demographics + + + | Address | [address] [place] [address] RD | | | [place] [address] | + + + | Home Phone | | + + + | Preferred Language | Unknown | + + + | Marital Status | | + + + | Yarsanism Affiliation | Unknown | + + + | Race | White | + + + | Ethnic Group | Not or | + + + Author + + + | Author | [facility] | | | and [place] | + + + | Organization | [facility] | | | and [place] | + + + | Address | Unknown | + + + | Phone | Unavailable | + + + Support + + + + + | Name | Relationship | Address | Phone | + + + + + | José Antonio Craig | ECON | [address] | | | | | [place], [place] | | | | | [address] | | + + + + + | José Antonio Craig | ECON | [address] | | | | | [place], [place] | | | | | [address] | | + + + + + Care Team Providers + +------+ + | Care Canvas Repairer Name | Role | Phone | + +------+ + | Alverto Olvera MD | PCP | | + +------+ + Reason for Visit +--------+ + | Reason | Comments | +--------+ + | Apnea | | +--------+ + Encounter Details +--------+---------+ + + + | Date | Type | Department | Care Team | Description | +--------+---------+ + + + | 07/27/ | Office | [facility] [place] | Dominik Tijerina PA | ANTHONY on CPAP (Primary | | 2012 | Visit | SLEEP DISORDER [address] | [address] | Dx) | | | | [address] | [place] | | | | | [place] [address] | [address] | | | | | [phone] | | | +--------+---------+ + + + [...] + + + | Blood Pressure | 118/72 | 07/27/2013 3:33 PM | | | | | PDT | | + + + + + | Pulse | 64 | 07/27/2013 3:33 PM | | | | | PDT | | + + + + + | Temperature | - | - | | + + + + + | Respiratory Rate | 16 | 07/27/2013 3:33 PM | | | | | PDT | | + + + + + | Oxygen Saturation | - | - | | + + + + + | Inhaled Oxygen | - | - | | | Concentration | | | | + + + + + | Weight | 98.8 kg (217 lb 14.4 | 07/27/2013 3:33 PM | | | | oz) | PDT | | + + + + + | Height | - | - | | + + + + + | Body Mass Index | 32.18 | 03/18/2013 2:00 PM | | | | | PDT | | + + + + + documented in this encounter Progress Notes Bethanie Sanches - 07/27/2013 3:28 PM PDT 07/27/13 1500 Gandhi Depression Inventory-II Depression Score 3 - Minimal depression Insomnia Severity Index Insomnia Severity Index 6 [place] Sleepiness Scale Sitting and reading 1 Watching TV 1 Sitting, inactive in a public place (e.g. a theatre or a meeting) 1 As a passenger in a car for an hour without a break 1 Lying down to rest in the afternoon when circumstances permit 2 Sitting and talking to someone 0 Sitting quietly after a lunch without alcohol 1 In a car, while stopped for a few minutes in traffic 0 Total score 7 SF-36v2 Score PF 48.61 RP 56.85 BP 50.29 GH 48.17 VT 58.33 SF 56.85 RE 55.88 MH 58.46 PCS 48.65 MCS 59.94 Dominik Rodrigues PA - 3:01 PM PDT Subjective: Patient ID: Carley Craig is a 63 y.o. female. HPI last office visit was: 05/20/2013 date of polysomnography: 04/06/2013 AHI: 34.7 RDI: 55.5 O2%: 80% with 114.1 minutes below 88% Machine type: ResMed S9 with nasal mask obtained from: [facility] [place] pressure: 8-10 cm 95%: 10.0 cm maxium: 10.0 cm Nights using CPAP: 30/30 average usage (all nights): 7:41 average usage (nights used): 7:41 AHI: 1.6 Carley comes in for CPAP compliance. She continues to do well with her CPAP. She is wear ing it on a nightly basis for the duration of the night. She has not considered sleeping wi thout it. She has noticed that she is sleeping better and has felt more rested during the d ay with more energy. She does not have any questions or concerns. We discussed when she is able to replace her equipment. I gave her a handout that shows wh en her insurance will accept her replacing each item. I have discussed the download and results of the paperwork in detail. She is unchanged or improved in all categories, with no areas of concern. The download shows that her sleep butter grader ea is well controlled, with an AHI of 1.6. It also shows that her leaks are well controlled . I have discussed the download and results of the paperwork in detail. She is unchanged or improved in nearly all categories, with no areas of concern. The download shows that her sl eep apnea is well controlled, with an AHI of 1.6. It also shows that her leaks are well con trolled. It shows that he is wearing his CPAP >4 hours for 100% of the nights during the 30 nights. Review of Systems Objective: Physical Exam Assessment: Problem #1: OBSTRUCTIVE SLEEP APNEA (327.23) This is well controlled with CPAP. Her CPAP compliance is going well. She has been waking with a mildly dry mouth in the morning. Plan: She is to continue with CPAP indefinitely. She is to increase her humidity further if nece ssary. If her dry mouth continues, she is to wear her chin strap or consider a full face ma sk. We have faxed a prescription to [facility] to convert her ResMed S9 to purchase. se is weari ng her CPAP >4 hours for 100% of the nights during the last 30 nights. I will follow up again in 1 year, sooner prn. At that time we will reassess with all appro piate paperwork. Fifteen minutes were spent [id number], with the majority of time spent i n counseling. Dominik Tijerina PA-C cc: Dr. Pérez Olvera documented in this enco unter Miscellaneous Notes Miscellaneous - ONBASE SCAN [facility] - 07/27/2013 12:00 AM PDT iscellaneous - ONBASE SCAN [facility] - 07/27/2013 12:00 AM PDTEle ctronically signed by Benny Hoffman at 07/29/2013 8:54 AM PDTdocumented in this encounter Plan of Treatment +--------+---------+ + + + | Date | Type | Specialty | Care Team | Description | +--------+---------+ + + + | 09/20/ | Office | Sleep Medicine | Dominik Tijerina PA | | | 2020 | Visit | | [address] | | | | | | [place] | | | | | | [address] | | | | | | | | +--------+---------+ + + + documented as of this encounter Visit Diagnoses + + | Diagnosis | + + | ANTHONY on CPAP - Primary Obstructive sleep apnea (adult) (pediatric) | + + documented in this encounter"
--- OUTSIDE RECORDS SUMMARY | ~2020-08-25 | XMS | Encounter Summary ---
Demographics + + + | Address | [address] [place] [address] RD | | | [place] [address] | + + + | Home Phone | | + + + | Preferred Language | Unknown | + + + | Marital Status | | + + + | Oriental Orthodox Affiliation | Unknown | + + + | Race | White | + + + | Ethnic Group | Not or | + + + Author + + + | Author | [facility] | | | and [place] | + + + | Organization | [facility] | | | and [place] | + + + | Address | Unknown | + + + | Phone | Unavailable | + + + Support + + + + + | Name | Relationship | Address | Phone | + + + + + | José Antonio Craig | ECON | [address] | | | | | [place], [place] | | | | | [address] | | + + + + + | José Antonio Craig | ECON | [address] | | | | | [place], [place] | | | | | [address] | | + + + + + Care Team Providers + +------+ + | Care Research Management Associate Name | Role | Phone | + [...] + + | 02/27/ | Refill | [facility] | [facility] | Medication Refill | | 2020 | | CARDIOLOGY [place] | MD Paola ADAMSON | (Metoprolol) | | | | [address] | [place], [place] | | | | | [place], [place] | [address] | | | | | [address] | | | | | | [phone] | | | +--------+--------+ + + + [...] [place] | | | | | | [phone] | | | | | | | | +--------+---------+ + + + documented as of this encounter Visit Diagnoses Not on filedocumented in this encounter"
--- OUTSIDE RECORDS SUMMARY | ~2020-08-25 | XMS | Clinical Summary ---
Demographics + + + | Address | [address] [place] [address] Rd | | | [place] [address] | + + + | Home Phone | | + + + | Preferred Language | Unknown | + + + | Marital Status | | + + + | Mandaeism Affiliation | Unknown | + + + | Race | White | + + + | Ethnic Group | Not or | + + + Author + + + | Author | [facility] | + + + | Organization | [facility] | + + + | Address | Unknown | + + + | Phone | Unavailable | + + + Support + + +---------+ + | Name | Relationship | Address | Phone | + + +---------+ + | José Antonio Craig | ECON | Unknown | | + + +---------+ + Care Team Providers + +------+ + | Care Resume Specialist Name | Role | Phone | + +------+ + | Alverto Olvera MD | PCP | | + +------+ + Source Comments NEIL is fully live on both [facility] and [facility] Allergies No Known Allergies Medications + + + +---------+------+------+-------+ | Medication | Sig | Dispensed | Refills | Star | End | Statu | | | | | | t | Date | s | | | | | | Date | | | + + + +---------+------+------+-------+ | apixaban 5 mg oral | Take by mouth. | | 0 | 04/0 | | Activ | | tablet | | | | 7/20 | | e | | | | | | 16 | | | + + + +---------+------+------+-------+ | dilTIAZem XR 24 | TAKE ONE CAPSULE BY | | 0 | / | | Activ | | hour release 120 mg | MOUTH ONCE DAILY | | | 12/20 | | e | | oral capsule,ext | | | | 17 | | | | release degradable | | | | | | | + + + +---------+------+------+-------+ | escitalopram | Take by mouth. | | 0 | | | Activ | | oxalate 10 mg oral | | | | | | e | | tablet | | | | | | | + + + +---------+------+------+-------+ | latanoprost 0.005 | Instill in eye. | | 0 | | | Activ | | % ophthalmic drops | | | | | | e | + + + +---------+------+------+-------+ | levothyroxine 125 | Take by mouth. | | 0 | | | Activ | | mcg oral tablet | | | | | | e | + + + +---------+------+------+-------+ | metoprolol | Take by mouth. | | 0 | | | Activ | | succinate 100 mg | | | | | | e | | oral tablet extended | | | | | | | | release 24 hr | | | | | | | + + + +---------+------+------+-------+ | MULTIVITAMIN ORAL | Take by mouth. | | 0 | | | Activ | | | | | | | | e | + + + +---------+------+------+-------+ | omeprazole 20 mg | Take by mouth. | | 0 | | | Activ | | oral capsule,delayed | | | | | | e | | release(DR/EC) | | | | | | | + + + +---------+------+------+-------+ | dorzolamide 2 % | Instill 1 drop into | 10 mL | 11 | 04/1 | | Activ | | ophthalmic | the left eye two | | | /20 | | e | | dropsIndications: | times daily. | | | 17 | | | | open angle glaucoma | Indications: Open | | | | | | | | Angle Glaucoma | | | | | | + + + +---------+------+------+-------+ | albuterol | Ventolin HFA 90 | | 0 | | | Activ | | (VENTOLIN HFA) 90 | mcg/actuation | | | | | e | | mcg/actuation | aerosol inhaler-- | | | | | | | inhalation HFA | prn | | | | | | | aerosol inhaler | | | | | | | + + + +---------+------+------+-------+ Active Problems + + + | Problem | Noted Date | + + + | Low tension glaucoma of left eye, severe stage | 03/14/2017 | + + + | Low tension glaucoma of right eye, mild stage | 03/14/2017 | + + + | Pseudophakia, both eyes | 03/14/2017 | + + + Family History + + +------+ + | Medical History | Relation | Name | Comments | + + +------+ + | Macular degeneration | Other | | | + + +------+ + | Macular degeneration | Paternal | | | | | Grandmoth | | | | | er | | | + + +------+ + + +------+--------+ + | Relation | Name | Status | Comments | + +------+--------+ + | Other | | | | + +------+--------+ + | Paternal Grandmother | | | | + +------+--------+ + Social History + +-------+ +--------+------+ | Tobacco Use | Types | Packs/Day | Years | Date | | | | | Used | | + +-------+ +--------+------+ | Never Smoker | | | | | + +-------+ +--------+------+ + +---+---+---+ | Smokeless Tobacco: | | | | | Never Used | | | | + +---+---+---+ + + + | Sex Assigned at | Date Recorded | | | | + + + | Not on file | | + + + Last Filed Vital Signs Not on file Plan of Treatment + + + + + | Health Maintenance | Due Date | Last | Comments | | | | Done | | + + + + + | Influenza (Flu) | | 09/15/20 | | | vaccination (#1) | 0 | 18 | | + + + + + | Pneumococcal | Completed | 04/04/20 | | | vaccination | | 16 | | + + + + + Results Not on filefrom Last 3 Months Insurance + +--------+ +--------+ + +-------- + | Payer | Benefi | Subscriber | Effect | Phone | Address | Type | | | t Plan | ID | [id number] | | | | | | / | | Dates | | | | | | Group | | | | | | + +--------+ +--------+ + +-------- + | MEDICARE | MEDICA | [id number] | 03/01/20 | [phone] | [address] | Medica | | | RE A & | | 14-Pre | 1 | [address] | re | | | B | | sent | | [place] | | | | | | | | [address] | | + +--------+ +--------+ + +-------- + | STATE FARM MEDICARE | STATE | [id number] | | [phone] | [address] | PPO | | SUPPLEMENT | FARM | 7 | 020-Pr | 2 | [id number] | | | | MEDICA | | esent | | [place] | | | | RE | | | | [id number] | | | | SUPPLE | | | | | | | | MENT | | | | | | + +--------+ +--------+ + +-------- + + +--------+ +--------+ + + | Guarantor Name | Accoun | Relation to | Date | Phone | Billing Address | | | t Type | Patient | of | | | | | | | | | | + +--------+ +--------+ + + | Carley Craig | Person | Self [birth year] | [address] | | | al/Fam | | 1950 | [phone] | [place] [address] | | | caprice | | | 1 (Home) | | + +--------+ +--------+ + +"
--- OUTSIDE RECORDS SUMMARY | ~2020-08-25 | XMS | Encounter Summary ---
Demographics + + + | Address | [address] [place] [address] RD | | | [place] [address] | + + + | Home Phone | | + + + | Preferred Language | Unknown | + + + | Marital Status | | + + + | Advent Affiliation | Unknown | + + + [...] | José Antonio Craig | ECON | [address] | | | | | [place], [place] | | | | | [address] | | + + + + + | José Antonio Craig | ECON | [address] | | | | | [place], [place] | | | | | [address] | | + + + + + Care Team Providers + +------+ + | Care Dairy Associate Name | Role | Phone | + +------+ + | Alverto Olvera MD | PCP | | + +------+ + Reason for Visit +--------+ + | Reason | Comments | +--------+ + | Apnea | | +--------+ + Encounter Details +--------+---------+ + + + | Date | Type | Department | Care Team | Description | +--------+---------+ + + + | 04/13/ | Office | [facility] | Antolin Mederos | ANTHONY (obstructive | | 2012 | Visit | SLEEP DISORDER [address] | MD [address] | sleep apnea) | | | | [address] | [address] [place] | (Primary Dx) | | | | [place] [address] | [place] [address] | | | | | [phone] | [phone] | | | | | | | [...] + + + | Blood Pressure | 128/72 | 04/13/2013 10:21 AM | | | | | PDT | | + + + + + | Pulse | 62 | 04/13/2013 10:21 AM | | | | | PDT | | + + + + + | Temperature | - | - | | + + + + + | Respiratory Rate | 14 | 04/13/2013 10:21 AM | | | | | PDT | | + + + + + | Oxygen Saturation | - | - | | + + + + + | Inhaled Oxygen | - | - | | | Concentration | | | | + + + + + | Weight | 100.2 kg (221 lb) | 04/13/2013 10:21 AM | | | | | PDT | | + + + + + | Height | - | - | | + + + + + | Body Mass Index | 32.64 | 03/18/2013 2:00 PM | | | | | PDT | | + + + + + documented in this encounter Progress Notes Antolin Mederos Jr., MD - 04/13/2013 1:57 PM Marty Craig underwent attended polyso mnography on 04/06/2013 which revealed a latency to sleep onset of 10.5 minutes and a sleep ef ficiency of 68.9%. The percentages of the various stages of sleep were Abnormal. The amounts of N3 sleep and REM sleep were mildly decreased. The arousal index was 76.6 which is high. The Respiratory Disturbance Index was 55.8; the Apnea-Hypopnea Index was 34.7; and the Apnea -Index was 9.6. The Respiratory Arousal Index was 54.7. The micky oxygen saturation recorde d during sleep was 80.0%. The patient spent 114.1 minutes with an oxygen saturation of less than 88%. There were 310 Periodic Limb Movements and the PLMS Arousal Index was 13.8. These results were reviewed with her. A: ANTHONY: She has severe ANTHONY. I've discussed the pathophysiology of this with her again. I've also discussed CPAP therapy, which I am recommending. Periodic Limb Movements of Sleep: This also mildly fragments sleep. I did not discuss this in detail with her at this visit; instead I want to first focus on ANTHONY. P: PSG guided PAP Titration in the near future with f/u thereafter. Today, 15 minutes was spent face to face with the patient; the majority of time was spent bharathi eng. CC: Dr. Pérez Olvera documented in th is encounter Plan of Treatment +--------+---------+ + + + | Date | Type | Specialty | Care Team | Description | +--------+---------+ + + + | 10/21/ | Office | Sleep Medicine | Dominik Tijerina PA | | | 2019 | Visit | | [address] | | | | | | [place] | | | | | | [address] | | | | | | | | +--------+---------+ + + + documented as of this encounter Visit Diagnoses + + | Diagnosis | + + | ANTHONY (obstructive sleep apnea) - Primary Obstructive sleep apnea (adult) (pediatric) | + + documented in this encounter"
--- OUTSIDE RECORDS SUMMARY | ~2020-08-25 | XMS | Encounter Summary ---
Demographics + + + | Address | [address] [place] [address] RD | | | [place] [address] | + + + | Home Phone | | + + + | Preferred Language | Unknown | + + + | Marital Status | | + + + | Anabaptist Affiliation | Unknown | + + + | Race | White | + + + | Ethnic Group | Not or | + + + Author + + + | Author | [facility] | | | and [place] | + + + | Organization | [facility] | | | and [place] | + + + | Address | Unknown | + + + | Phone | Unavailable | + + + Support + + + + + | Name | Relationship | Address | Phone | + + + + + | José Antonio Craig | ECON | [address] | | | | | [place], [place] | | | | | [address] | | + + + + + | José Antonio Craig | ECON | [address] | | | | | [place], [place] | | | | | [address] | | + + + + + Care Team Providers + +------+ + | Care Company Pilot Name | Role | Phone | + +------+ + | Alverto Olvera MD | PCP | | + +------+ + Reason for Visit +--------+ + | Reason | Comments | +--------+ + | Apnea | | +--------+ + Encounter Details +--------+---------+ + + + | Date | Type | Department | Care Team | Description | +--------+---------+ + + + | 08/17/ | Office | [facility] [place] | Dominik Tijerina PA | ANTHONY on CPAP (Primary | | 2015 | Visit | SLEEP DISORDER [address] | [address] | Dx) | | | | [address] [place] | [place] | | | | | [place] [address] | [address] | | | | | [phone] | | | +--------+---------+ + + + [...] + | Blood Pressure | 112/66 | 08/17/2015 1:55 PM | | | | | PDT | | + + + + + | Pulse | 65 | 08/17/2015 1:55 PM | | | | | PDT | | + + + + + | Temperature | - | - | | + + + + + | Respiratory Rate | 14 | 08/17/2015 1:55 PM | | | | | PDT | | + + + + + | Oxygen Saturation | 97% | 08/17/2015 1:55 PM | | | | | PDT | | + + + + + | Inhaled Oxygen | - | - | | | Concentration | | | | + + + + + | Weight | 96.8 kg (213 lb 6.4 | 08/17/2015 1:55 PM | | | | oz) | PDT | | + + + + + | Height | - | - | | + + + + + | Body Mass Index | 30.62 | 08/03/2014 8:44 AM | | | | | PDT | | + + + + + documented in this encounter Patient Instructions Patient Instructions Dominik Tijerina PA - 08/17/2015 2:14 PM [place] [place] get Provent. Follow up in 1 year. documented in this encounter Progress Notes Dominik Tijerina PA - 08/17/2015 1:59 PM PDT Subjective: Patient ID: Carley Craig is a 65 y.o. female. HPI last office visit was: 08/03/2014 date of polysomnography: 04/06/2013 AHI: 34.7 RDI: 55.5 O2%: 80% with 114.1 minutes below 88% Machine type: ResMed S9 with nasal mask obtained from: [facility] [place] pressure: 8-15 cm (increased from 8-10 cm) 95%: 13.3 cm maxium: 14.4 cm Nights using CPAP: 355/365 % of nights >4 hours: 93% average usage (all nights): 7:05 average usage (nights used): 7:18 AHI: 1.3 Carley comes in for CPAP compliance. She continues to do well with her CPAP. She is wear ing it on a nightly basis for the duration of the night. She does not consider sleeping wit hout it. She is going to [place] next month and is not sure if she will be able to use her CPAP while she is there. We discussed the option of using Provent while traveling or witho ut electricity. She is interested in trying this. I have discussed the download and results of the paperwork in detail. The download shows t hat her sleep apnea is well controlled, with an AHI of 1.3. It also shows that her leaks ar e well controlled. Review of Systems Objective: Physical Exam Assessment: Problem #1: OBSTRUCTIVE SLEEP APNEA (327.23) This is well controlled with CPAP. Her CPAP compliance is going well. She is concerned ab out not being able to use her CPAP when without electricity. Plan: She is to continue with CPAP indefinitely. We have sent a prescription to [place] in [facility] for Provent for traveling and/or without electricity. I have recommended that she touc h base with her medical supplier twice per year to ensure that her equipment is satisfactory . I will follow up again in 1 year, sooner prn. At that time we will reassess with all appro piate paperwork. Thirty minutes were spent [id number], with the majority of time spent in counseling. Dominik Tijerina PA-C cc: Dr. Pérez Olvera yclinton, Bethanie Rocha, Dna Sequencing Associate - 08/17/2015 1:52 PM PDTFormatting of this note might be different from the orig inal. 08/17/15 1300 Gandhi Depression Inventory-II Depression Score 2 - Minimal depression Insomnia Severity Index Insomnia Severity Index 5 [place] Sleepiness Scale Sitting and reading 1 Watching TV 1 Sitting, inactive in a public place (e.g. a theatre or a meeting) 2 As a passenger in a car for an hour without a break 3 Lying down to rest in the afternoon when circumstances permit 2 Sitting and talking to someone 0 Sitting quietly after a lunch without alcohol 0 In a car, while stopped for a few minutes in traffic 0 Total score 9 SF-36v2 Score PF 49.89 RP 57.16 BP 62 GH 55.56 VT 55.57 SF 57.34 RE 52.69 MH 56.1 PCS 55.91 MCS 55.3 documented in this enco unter Plan of Treatment +--------+---------+ + + + | Date | Type | Specialty | Care Team | Description | +--------+---------+ + + + | 09/20/ | Office | Sleep Medicine | Dominik Tijerina PA | | | 2019 | Visit | | [address] | | | | | | [place] | | | | | | [address] | | | | | | | | +--------+---------+ + + + documented as of this encounter Visit Diagnoses + + | Diagnosis | + + | ANTHONY on CPAP - Primary Obstructive sleep apnea (adult) (pediatric) | + + documented in this encounter"
--- OUTSIDE RECORDS SUMMARY | ~2020-08-25 | XMS | Encounter Summary ---
Demographics + + + | Address | [address] [place] [address] Rd | | | [place] [address] | + + + | Home Phone | | + + + | Preferred Language | Unknown | + + + | Marital Status | | + + + | Gnosticist Affiliation | Unknown | + + + | Race | White | + + + | Ethnic Group | Not or | + + + Author + + + | Author | [facility] | + + + | Organization | [facility] | + + + | Address | Unknown | + + + | Phone | Unavailable | + + + Support + + +---------+ + | Name | Relationship | Address | Phone | + + +---------+ + | José Antonio Craig | ECON | Unknown | | + + +---------+ + Care Team Providers + +------+ + | Care Cloud Engagement Partner Name | Role | Phone | + +------+ + | Alverto Olvera MD | PCP | | + +------+ + Encounter Details +--------+ + + + + | Date | Type | Department | Care Team | Description | +--------+ + + + + | 08/23/ | Document-Sc | Health Information | Unknown . | | | 2017 | anned | Services [id number] | | | | | | [address] | | | | | | Mailcode: [id number] | | | | | | [facility] | | | | | | [place], [place] | | | | | | [address] | | | | | | [phone] | | | +--------+ + + + [...]
--- OUTSIDE RECORDS SUMMARY | ~2020-08-25 | XMS | Encounter Summary ---
Demographics + + + | Address | [address] [place] [address] RD | | | [place] [address] | + + + | Home Phone | | + + + | Preferred Language | Unknown | + + + | Marital Status | | + + + | Tenriism Affiliation | Unknown | + + + | Race | White | + + + | Ethnic Group | Not or | + + + Author + + + | Author | [facility] | | | and [place] | + + + | Organization | [facility] | | | and [place] | + + + | Address | Unknown | + + + | Phone | Unavailable | + + + Support + + + + + | Name | Relationship | Address | Phone | + + + + + | José Antonio Craig | ECON | [address] | | | | | [place], [place] | | | | | [address] | | + + + + + | José Antonio Craig | ECON | [address] | | | | | [place], [place] | | | | | [address] | | + + + + + Care Team Providers + +------+ + | Care Street Cleaner Name | Role | Phone | + +------+ + | Alverto Olvera MD | PCP | | + +------+ + Reason for Visit + + + | Reason | Comments | + + + | Medication Refill | Diltiazem | + + + Encounter Details +--------+--------+ + + + | Date | Type | Department | Care Team | Description | +--------+--------+ + + + | 05/28/ | Refill | [facility] | Jamee Carson, | Medication Refill | | 2020 | | CARDIOLOGY [facility] | MD Paola ADAMSON | (Diltiazem) | | | | [address] | [place], [place] | | | | | WAY [place] [facility] | [address] | | | | | [place] | | | | | | [address] | | | | | | [phone] | | | +--------+--------+ + + + [...] [place] | | | | | | [address] | | | | | | | | +--------+---------+ + + + documented as of this encounter Visit Diagnoses Not on filedocumented in this encounter"
--- OUTSIDE RECORDS SUMMARY | ~2020-08-25 | XMS | Encounter Summary ---
Demographics + + + | Address | [address] [place] [address] RD | | | [place] [address] | + + + | Home Phone | | + + + | Preferred Language | Unknown | + + + | Marital Status | | + + + | Temple Affiliation | Unknown | + + + | Race | White | + + + | Ethnic Group | Not or | + + + Author + + + | Author | [facility] | | | and [place] | + + + | Organization | [facility] | | | and [place] | + + + | Address | Unknown | + + + | Phone | Unavailable | + + + Support + + + + + | Name | Relationship | Address | Phone | + + + + + | José Antonio Craig | ECON | [address] | | | | | [place], [place] | | | | | [address] | | + + + + + | José Antonio Craig | ECON | [address] | | | | | [place], [place] | | | | | [address] | | + + + + + Care Team Providers + +------+ + | Care Fuel Attendant Name | Role | Phone | + +------+ + | Alverto Olvera MD | PCP | | + +------+ + Reason for Visit + +--------+ + | Reason | Onset | Comments | | | Date | | + +--------+ + | Medication Refill | 06/07/ | | | | 2012 | | + +--------+ + Encounter Details +--------+--------+ + + + | Date | Type | Department | Care Team | Description | +--------+--------+ + + + | 06/07/ | Refill | [facility] | Dominik Tijerina PA | Medication Refill | | 2012 | | SLEEP DISORDER [address] | [address] | | | | | [address] [place] | [place] | | | | | [place] [address] | [address] | | | | | [phone] | | | +--------+--------+ + + + [...] + + documented as of this encounter Miscellaneous Notes Telephone Encounter - Bethanie Sanches - 06/07/2013 2:14 PM [facility] documented in this encount er Plan of Treatment +--------+---------+ + + + | Date | Type | Specialty | Care Team | Description | +--------+---------+ + + + | 09/20/ | Office | Sleep Medicine | Dominik Tijerina PA | | | 2019 | Visit | | [address] | | | | | | [place] | | | | | | [id number] | | | | | | | | +--------+---------+ + + + documented as of this encounter Visit Diagnoses + + | Diagnosis | + + | Obstructive sleep apnea (adult) (pediatric) - Primary | + + documented in this encounter"
--- OUTSIDE RECORDS SUMMARY | ~2020-08-25 | XMS | Encounter Summary ---
Demographics + + + | Address | [address] [place] [address] RD | | | [place] [address] | + + + | Home Phone | | + + + | Preferred Language | Unknown | + + + | Marital Status | | + + + | Religion Affiliation | Unknown | + + + | Race | White | + + + | Ethnic Group | Not or | + + + Author + + + | Author | [facility] | | | and [place] | + + + | Organization | [facility] | | | and [place] | + + + | Address | Unknown | + + + | Phone | Unavailable | + + + Support + + + + + | Name | Relationship | Address | Phone | + + + + + | José Antonio Craig | ECON | [address] | | | | | [place], [place] | | | | | [address] | | + + + + + | José Antonio Craig | ECON | [address] | | | | | [place], [place] | | | | | [address] | | + + + + + Care Team Providers + +------+ + | Care Tablet Making Machine Operator Name | Role | Phone | + +------+ + PCP | Unavailable | + +------+ + Encounter Details +--------+ + + + + | Date | Type | Department | Care Team | Description | +--------+ + + + + | 01/19/ | Hospital | [facility] | | | | 2007 | Encounter | [facility] | | | | | | [address] | | | | | | [place] | | | | | | [address] | | | | | | [phone] | | | +--------+ + + + [...] [place] | | | | | | [id number] | | | | | | | | +--------+---------+ + + + documented as of this encounter Visit Diagnoses Not on filedocumented in this encounter"
--- OUTSIDE RECORDS SUMMARY | ~2020-08-25 | XMS | Encounter Summary ---
Demographics + + + | Address | [address] [place] [address] Rd | | | [place] [address] | + + + | Home Phone | | + + + | Preferred Language | Unknown | + + + | Marital Status | | + + + | Denominational Affiliation | Unknown | + + + | Race | White | + + + | Ethnic Group | Not or | + + + Author + + + | Author | [facility] | + + + | Organization | [facility] | + + + | Address | Unknown | + + + | Phone | Unavailable | + + + Support + + +---------+ + | Name | Relationship | Address | Phone | + + +---------+ + | José Antonio Craig | ECON | Unknown | | + + +---------+ + Care Team Providers + +------+ + | Care Blower Installer Name | Role | Phone | + +------+ + | Alverto Olvera MD | PCP | | + +------+ + Reason for Visit + + + | Reason | Comments | + + + | Fundus photography | OU | + + + Encounter Details +--------+ + + + + | Date | Type | Department | Care Team | Description | +--------+ + + + + | 03/14/ | Diagnostic | [facility] | | Fundus photography | | 2016 | Visit | [facility] [place] | | (OU) | | | | Photography at [facility] | | | | | | [address] | | | | | | [facility], | | | | | | Building | | | | | | Floor [place], [place] | | | | | | [address] | | | | | | [phone] | | | +--------+ + + + [...] + + documented as of this encounter Progress Justina Pearson - 03/14/2017 1:45 PM PDTThe interpretation for the following study: Fundus photography - OU can be found on physician encounter on 03/14/2017. documented in this e ncounter Plan of Treatment Not on filedocumented as of this encounter Visit Diagnoses + + | Diagnosis | + + | Low tension glaucoma of left eye, severe stage | + + documented in this encounter"
--- OUTSIDE RECORDS SUMMARY | ~2020-08-25 | XMS | Encounter Summary ---
Demographics + + + | Address | [address] [place] [address] RD | | | [place] [address] | + + + | Home Phone [...] + + + | Author | [facility] | | | and [place] | + + + | Organization | [facility] | | | and [place] | + + + | Address | Unknown | + + + | Phone | Unavailable | + + + Support + + + + + | Name | Relationship | Address | Phone | + + + + + | José Antonio Craig | ECON | [address] | | | | | [place], [place] | | | | | [address] | | + + + + + | José Antonio Craig | ECON | [address] | | | | | [place], [place] | | | | | [address] | | + + + + + Care Team Providers + +------+ + | Care Consulting Senior Practice Director Name | Role | Phone | [...] Description | +--------+---------+ + + + | 09/29/ | Office | [facility] | Dominik Tijerina PA | ANTHONY on CPAP (Primary | | 2018 | Visit | SLEEP DISORDER [address] | [address] | Dx) | | | | [address] [place] | [place] | | | | | [place] [address] | [id number] | | | | | [phone] | | | +--------+---------+ + + + [...] + + + | Blood Pressure | 118/60 | 09/29/2018 1:11 PM | | | | | PDT | | + + + + + | Pulse | 74 | 09/29/2018 1:11 PM | | | | | PDT | | + + + + + | Temperature | - | - | | + + + + + | Respiratory Rate | 16 | 09/29/2018 1:11 PM | | | | | PDT | | + + + + + | Oxygen Saturation | 98% | 09/29/2018 1:11 PM | | | | | PDT | | + + + + + | Inhaled Oxygen | - | - | | | Concentration | | | | + + + + + | Weight | 103.9 kg (229 lb 0.9 | 09/29/2018 1:11 PM | | | | oz) | PDT | | + + + + + | Height | - | - | | + + + + + | Body Mass Index | 32.87 | 12/03/2017 11:29 AM | | | | | PST | | + + + + + documented in this encounter Progress Notes Marybel Kidd, Demonstrator Sales - 09/29/2018 1:30 PM PDTFormatting of this note might b e different from the original. 09/29/18 1300 Gandhi Depression Inventory-II Depression Score 1 - Minimal depression Insomnia Severity Index Insomnia Severity Index 5 [place] Sleepiness Scale Sitting and reading 1 Watching TV 1 Sitting, inactive in a public place (e.g. a theatre or a meeting) 0 As a passenger in a car for an hour without a break 3 Lying down to rest in the afternoon when circumstances permit 2 Sitting and talking to someone 0 Sitting quietly after a lunch without alcohol 1 In a car, while stopped for a few minutes in traffic 0 Total score 8 SF-36v2 Score PF 49.89 RP 52.66 BP 50.71 GH 57.94 VT 55.57 SF 57.34 RE 56.17 MH 53.48 PCS 51.25 MCS 57.16 oram, RENETTA Guzman - 1:30 PM PDT Subjective: Patient ID: Carley Craig is a 68 y.o. female. HPI last office visit: 08/20/2017 date of polysomnography: 04/06/2013 AHI: 34.7 RDI: 55.5 O2%: 80% with 114.1 minutes below 88% Machine type: ResMed S9 Mask type: nasal mask DME: [facility] [place] pressure: 8-15 cm (increased from 8-10 cm) Median: 11.3 cm 95%: 13.6 cm maxium: 14.6 cm Nights using CPAP: 365/365 % of nights >4 hours: 99% average usage (all nights): 8:43 average usage (nights used): 8:43 AHI: 1.1 Carley comes in for CPAP compliance. She continues to do well with her CPAP. She is wear ing it on a nightly basis for the duration of the night. She does not consider sleeping wit hout it. She is replacing her equipment as needed. She is due for a replacement machine, b ut feels it is working fine at this time. We discussed when she is able to replace her equi pment. We also discussed the recommended cleaning schedule for her equipment. She does not have any questions or concerns. I have discussed the download and results of the paperwork in detail. The download shows t hat her sleep apnea is controlled, with an AHI of 1.1. It also shows that her leaks are con trolled. BP 118/60 | Pulse 74 | Resp 16 | Wt 103.9 kg (229 lb 0.9 oz) | SpO2 98% | BMI 33.83 kg /m Review of Systems Objective: Physical Exam Assessment: Problem #1: OBSTRUCTIVE SLEEP APNEA ([id number]) This is controlled with CPAP. Her CPAP compliance is going well. Plan: 1. She is to continue with CPAP indefinitely. 2. I have recommended that she touch base with her medical supplier twice per year to ensu re that her equipment is satisfactory. I will follow up again in 2 years, sooner prn. At that time we will reassess with all appr opiate paperwork. Fifteen minutes were spent [id number], with the majority of time spent in counseling. Dominik Tijerina PA-C cc: Alverto Olvera MD documented in this enco unter Plan of [...] [place] | | | | | | [id number] | | | | | | | | +--------+---------+ + + + documented as of this encounter Visit Diagnoses + + | Diagnosis | + + | ANTHONY on CPAP - Primary Obstructive sleep apnea (adult) (pediatric) | + + documented in this encounter"
--- OUTSIDE RECORDS SUMMARY | ~2020-08-25 | XMS | Encounter Summary ---
Demographics + + + | Address | [address] [place] [address] RD | | | [place] [address] | + + + | Home Phone | | + + + | Preferred Language | Unknown | + + + | Marital Status | | + + + | Islam Affiliation | Unknown | + + + | Race | White | + + + | Ethnic Group | Not or | + + + Author + + + | Author | [facility] | | | and [place] | + + + | Organization | [facility] | | | and [place] | + + + | Address | Unknown | + + + | Phone | Unavailable | + + + Support + + + + + | Name | Relationship | Address | Phone | + + + + + | José Antonio Craig | ECON | [address] | | | | | [place], [place] | | | | | [address] | | + + + + + | José Antonio Craig | ECON | [address] | | | | | [place], [place] | | | | | [address] | | + + + + + Care Team Providers + +------+ + | Care Railroad Car Cleaning Supervisor Name | Role | Phone | + +------+ + | Alverto Olvera MD | PCP | | + +------+ + Reason for Visit + + + | Reason | Comments | + + + | Medication Refill | | + + + Encounter Details +--------+--------+ + + + | Date | Type | Department | Care Team | Description | +--------+--------+ + + + | 03/02/ | Refill | [facility] | Jamee Carson, | Medication Refill | | 2020 | | CARDIOLOGY [place] | [address] | | | | [address] | [place], [place] | | | | | [place], [place] | [id number] | | | | | [address] | | | | | | [phone] | | | +--------+--------+ + + + [...] [place] | | | | | | [id number] | | | | | | | | +--------+---------+ + + + documented as of this encounter Visit Diagnoses Not on filedocumented in this encounter"
--- OUTSIDE RECORDS SUMMARY | ~2020-08-25 | XMS | Encounter Summary ---
Demographics + + + | Address | [address] [place] [address] RD | | | [place] [address] | + + + | Home Phone | | + + + | Preferred Language | Unknown | + + + | Marital Status | | + + + | Spiritism Affiliation | Unknown | + + + | Race | White | + + + | Ethnic Group | Not or | + + + Author + + + | Author | [facility] | | | and [place] | + + + | Organization | [facility] | | | and [place] | + + + | Address | Unknown | + + + | Phone | Unavailable | + + + Support + + + + + | Name | Relationship | Address | Phone | + + + + + | José Antonio Craig | ECON | [address] | | | | | [place], [place] | | | | | [address] | | + + + + + | José Antonio Craig | ECON | [address] | | | | | [place], [place] | | | | | [address] | | + + + + + Care Team Providers + +------+ + | Care Typewriter Aligner Name | Role | Phone | + +------+ + | Alverto Olvera MD | PCP | | + +------+ + Reason for Visit + +--------+ + | Reason | Onset | Comments | | | Date | | + +--------+ + | Test Results | 02/16/ | | | | 2019 | | + +--------+ + Encounter Details +--------+ + + + + | Date | Type | Department | Care Team | Description | +--------+ + + + + | 02/16/ | Telephone | [facility] | Jamee Carson, | Test Results | | 2019 | | CARDIOLOGY [place] | [address] | | | | [address] | [place], [place] | | | | | [place], [place] | [address] | | | | | [address] | | | | | | [phone] | | | +--------+ + + + [...] this encounter Miscellaneous Notes Telephone Encounter - Jamee Carson MD - 02/17/2020 3:20 PM PDTDiscussed the echocard iogram findings with the patient over the phone. Will continue with follow up visits. Electronically signed by Jamee Carson MD at 02/16 3:21 PM PDTdocumented in this encounter Plan of Treatment +--------+---------+ + + + | Date | Type | Specialty | Care Team | Description | +--------+---------+ + + + | 09/20/ | Office | Sleep Medicine | Dominik Tijerina PA | | 2019 | Visit | | [address] | | | | | | [place] | | | | | | [id number] | | | | | | | | +--------+---------+ + + + documented as of this encounter Visit Diagnoses + + | Diagnosis | + + | Chronic atrial fibrillation (HCC) - Primary Atrial fibrillation | + + documented in this encounter"
--- OUTSIDE RECORDS SUMMARY | ~2020-08-25 | XMS | Encounter Summary ---
Demographics + + + | Address | [address] [place] [address] RD | | | [place] [address] | + + + | Home Phone | | + + + | Preferred Language | Unknown | + + + | Marital Status | | + + + | Spiritism Affiliation | Unknown | + + + | Race | White | + + + | Ethnic Group | Not or | + + + Author + + + | Author | [facility] | | | and [place] | + + + | Organization | [facility] | | | and [place] | + + + | Address | Unknown | + + + | Phone | Unavailable | + + + Support + + + + + | Name | Relationship | Address | Phone | + + + + + | José Antonio Craig | ECON | [address] | | | | | [place], [place] | | | | | [address] | | + + + + + | José Antonio Craig | ECON | [address] | | | | | [place], [place] | | | | | [address] | | + + + + + Care Team Providers + +------+ + | Care Ground Operations Superintendent Name | Role | Phone | + [...] + + | 08/20/ | Office | [facility] | Dominik Tijerina PA | ANTHONY on CPAP (Primary | | 2015 | Visit | SLEEP DISORDER [address] | [address] | Dx) | | | | [address] | [place] | | | | | [place] [address] | [address] | | | | | [phone] | | | +--------+---------+ + + + [...] + + + | Blood Pressure | 98/66 | 08/20/2016 1:59 PM | | | | | PDT | | + + + + + | Pulse | 78 | 08/20/2016 1:59 PM | | | | | PDT | | + + + + + | Temperature | - | - | | + + + + + | Respiratory Rate | 14 | 08/20/2016 1:59 PM | | | | | PDT | | + + + + + | Oxygen Saturation | 97% | 08/20/2016 1:59 PM | | | | | PDT | | + + + + + | Inhaled Oxygen | - | - | | | Concentration | | | | + + + + + | Weight | 96.6 kg (213 lb) | 08/20/2016 1:59 PM | | | | | PDT | | + + + + + | Height | - | - | | + + + + + | Body Mass Index | 30.56 | 03/07/2016 11:07 AM | | | | | PDT | | + + + + + documented in this encounter Progress Notes Bethanie Sanches, Senior Clinical Project Manager - 08/20/2016 2:09 PM PDT 08/20/16 1300 Gandhi Depression Inventory-II Depression Score 0- No Depression Insomnia Severity Index Insomnia Severity Index 4 [place] Sleepiness Scale Sitting and reading 1 Watching [...] few minutes in traffic 0 Total score 6 SF-36v2 Score PF 49.89 RP 57.16 BP 42.24 GH 55.56 VT 52.6 SF 57.34 RE 45.72 MH 56.1 PCS 50.88 MCS 53.5 Dominik Rodrigues PA - 1:22 PM PDT Subjective: Patient ID: Carley Craig is a 66 y.o. female. HPI last office visit was: 08/17/2015 date of polysomnography: 04/06/2013 AHI: 34.7 RDI: 55.5 O2%: 80% with 114.1 minutes below 88% Machine type: ResMed S9 with nasal mask obtained from: [facility] [place] pressure: 8-15 cm (increased from 8-10 cm) Median: 11.8 cm 95%: 13.6 cm maxium: 14.8 cm Nights using CPAP: 365/365 % of nights >4 hours: 97% average usage (all nights): 8:04 average usage (nights used): 8:04 AHI: 1.6 Carley comes in for CPAP compliance. She continues to do well with her CPAP. She is wear ing it on a nightly basis for the duration of the night. She does not consider sleeping wit hout it. She is replacing her equipment as needed. She does not have any questions or conc erns. I have discussed the download and results of the paperwork in detail. The download shows t hat her sleep apnea is well controlled, with an AHI of 1.6. It also shows that her leaks ar e well controlled. BP 98/66 mmHg | Pulse 78 | Resp 14 | Wt 96.616 kg (213 lb) | SpO2 97% Review of Systems Objective: Physical Exam Assessment: Problem #1: OBSTRUCTIVE SLEEP APNEA ([id number]-R75.33) This is well controlled with CPAP. Her [...] appro piate paperwork. Fifteen minutes were spent [id number], with the majority of time spent i [...] [place] | | | | | | [id number] | | | | | | | | +--------+---------+ + + + documented as of this encounter Visit Diagnoses + + | Diagnosis | + + | ANTHONY on CPAP - Primary Obstructive sleep apnea (adult) (pediatric) | + + documented in this encounter"
--- OUTSIDE RECORDS SUMMARY | ~2020-08-25 | XMS | Encounter Summary ---
Demographics + + + | Address | [address] [place] [address] RD | | | [place] [address] | + + + | Home Phone | | + + + | Preferred Language | Unknown | + + + | Marital Status | | + + + | Quaker Affiliation | Unknown | + + + | Race | White | + + + | Ethnic Group | Not or | + + + Author + + + | Author | [facility] | | | and [place] | + + + | Organization | [facility] | | | and [place] | + + + | Address | Unknown | + + + | Phone | Unavailable | + + + Support + + + + + | Name | Relationship | Address | Phone | + + + + + | José Antonio Craig | ECON | [address] | | | | | [place], [place] | | | | | [address] | | + + + + + | José Antonio Craig | ECON | [address] | | | | | [place], [place] | | | | | [address] | | + + + + + Care Team Providers + +------+ + | Care Airplane Engineer Name | Role | Phone | + +------+ + | Alverto Olvera MD | PCP | | + +------+ + Reason for Visit + + + | Reason | Comments | + + + | Follow-up | | + + + Encounter Details +--------+---------+ + + + | Date | Type | Department | Care Team | Description | +--------+---------+ + + + | 05/20/ | Office | [facility] | Dominik Tijerina PA | ANTHONY on CPAP (Primary | | 2012 | Visit | SLEEP DISORDER [address] | [address] | Dx) | | | | [address] [place] | [place] | | | | | [place] [address] | [address] | | | | | [phone] | | | +--------+---------+ + + + [...] + + + | Blood Pressure | 110/70 | 05/20/2013 2:59 PM | | | | | PDT | | + + + + + | Pulse | 64 | 05/20/2013 2:59 PM | | | | | PDT | | + + + + + | Temperature | - | - | | + + + + + | Respiratory Rate | 16 | 05/20/2013 2:59 PM | | | | | PDT | | + + + + + | Oxygen Saturation | - | - | | + + + + + | Inhaled Oxygen | - | - | | | Concentration | | | | + + + + + | Weight | 102.6 kg (226 lb 1.6 | 05/20/2013 2:59 PM | | | | oz) | PDT | | + + + + + | Height | - | - | | + + + + + | Body Mass Index | 33.39 | 03/18/2013 2:00 PM | | | | | PDT | | + + + + + documented in this encounter Progress Notes Dominik Tijerina PA - 05/20/2013 3:02 PM PDT Subjective: Patient ID: Carley Craig is a 63 y.o. female. HPI last office visit was: 05/17/2013 date of polysomnography: 04/06/2013 AHI: 34.7 RDI: 55.5 O2%: 80% with 114.1 minutes below 88% Machine type: m2M Strategies S9 with nasal mask obtained from: [facility] [place] pressure: 8-10 cm 95%: 10.0 cm maxium: 10.0 cm Nights using CPAP: 01/31 average usage (all nights): 7:25 average usage (nights used): 7:25 AHI: 1.2 Carley comes in for CPAP compliance. She has done well with her compliance during her three nights, wearing it each night for the duration of the night. She has tolerated the pressure without much difficulty. Her main challenge has been that her nasal mask has caus ed some discomfort to the bridge of her nose. She is getting a good mask fit, without any s ignificant leaks. She has had a mildly dry mouth in the morning. She is not sure if this i s from her humidity being too low or from opening her mouth. She is not using a chin strap and is hopeful that she doesn't need to. We went through each of the settings on the CPAP, to ensure that there is a good understand ing of how to make changes to temperature, humidity and/or the ramp. I have increased her h umidity to 4.0 to help with her dry mouth. She is now comfortable making adjustments to the settings, if necessary. I have discussed the download in detail. This shows that her sleep apnea is well controlle d, with an AHI of 1.2. It also shows that her leaks are well controlled. Review of Systems Objective: Physical [...] or consider a full face ma sk. I will follow up again in 2 months, sooner prn. At that time we will reassess with all bob ropiate paperwork. Thirty minutes were spent [id number], with the majority of time spent in counseling. Dominik Tijerina PA-C cc: Dr. Pérez Olvera documented in this enco unter Plan of Treatment +--------+---------+ + + + | Date | Type | Specialty | Care Team | Description | +--------+---------+ + + + | 09/20/ | Office | Sleep Medicine | Dominik Tijerina PA | | | 2020 | Visit | | [address] [facility] | | | | | | [place] [...]
--- OUTSIDE RECORDS SUMMARY | ~2020-08-25 | XMS | Encounter Summary ---
Demographics + + + | Address | [address] [place] [address] Rd | | | [place] [address] | + + + | Home Phone | | + + + | Preferred Language | Unknown | + + + | Marital Status | | + + + | Episcopal Affiliation | Unknown | + + + | Race | White | + + + | Ethnic Group | Not or | + + + Author + + + | Author | [facility] | + + + | Organization | [facility] | + + + | Address | Unknown | + + + | Phone | Unavailable | + + + Support + + +---------+ + | Name | Relationship | Address | Phone | + + +---------+ + | José Antonio Craig | ECON | Unknown | | + + +---------+ + Care Team Providers + +------+ + | Care Storage Battery Tester Name | Role | Phone | + +------+ + | Alverto Olvera MD | PCP | | + +------+ + Reason for Visit + + + | Reason | Comments | + + + | SLT - selective | left eye | | laser | | | trabeculoplasty | | + + + Encounter Details +--------+ + + + + | Date | Type | Department | Care Team | Description | +--------+ + + + + | 05/23/ | Procedure | [facility] | Julia Castle, | SLT - selective | | 2016 | | [facility] | ,PhD [address] | laser | | | | at [facility] [address] | [address] [facility] [place] | trabeculoplasty | | | | [facility] | [address] | (left eye) | | | | [facility], | [phone] | | | | | [facility] | | | | | | Floor [place], [place] | | | | | | [address] | | | | | | [phone] | | | +--------+ + + + [...] + documented as of this encounter Progress Notes Julia Castle MD,PhD - 05/23/2017 12:20 PM PDTFormatting of this note might be differen t from the original. Glaucoma Clinic Note: 05/23/2017 Glaucoma Diagnosis: Referred by: Shawna Rosales NTG OS>OD HPI: Carley Craig is a 67 y.o. female 2 month follow up. Started dorzolamide after last visit - tolerating well, but IOP not at target at Dr Valle's office. Here for SLT OS today. Vision stable, eyes feeling fine. Now taking systemic BBs in the AM Eye medications: Dorzolamide 2x/day OS - 6:30 am Latanoprost qhs OU - 10:00 pm Current Medication List Name Sig APIXABAN 5 MG TABLET Take by mouth. DILTIAZEM ER (XR/XT) 120 MG CAPSULE,EXTENDED RELEASE,CONTROLLED TAKE ONE CAPSULE BY MOUTH O NCE DAILY DORZOLAMIDE 2 % EYE DROPS Instill 1 drop into the left eye two times daily. Indications: Op en Angle Glaucoma ESCITALOPRAM 10 MG TABLET Take by mouth. LATANOPROST 0.005 % EYE DROPS Instill in eye. LEVOTHYROXINE 125 MCG TABLET Take by mouth. METOPROLOL SUCCINATE ER 100 MG TABLET,EXTENDED RELEASE 24 HR Take by mouth. MULTIVITAMIN ORAL Take by mouth. OMEPRAZOLE 20 MG CAPSULE,DELAYED RELEASE Take by mouth. Glaucoma summary: Referred in 2017 at age 66 for NTG OS>OD, in the setting of low systemic BP. Other ocular diagnoses: Pseudophakia OU Home BP measurements in 2017 over spring months: lowest BP was ~105/70, rest were very norm al Ocular procedures: OD OS Phaco/IOL YAG Phaco/IOL YAG SLT (05/23/2017) ST OD OS Max IOP 19 17 Pachymetry 514 518 Target IOP <21 12 Diurnal none none Glaucoma medications to avoid: Brimonidine - irritation, redness Timolol - asthma, low BP Family history of glaucoma? No History of eye trauma? No Diabetes? No Asthma/COPD? Yes, allergic asthma needing inhalers in the past month Hypotension/Shock history? BP runs low (on BBs and diltiazem for A-fib) Migraines/Raynauds? No Steroid use? No Kidney stones? No Driving? Yes, day and night Flomax use? Never Anticoagulation? 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 12 review of systems (in cluding constitutional symptoms, ENT, cardiovascular, respiratory, gastrointestinal, genitou rinary, integumetary, neurologic, psychiatric, endocrine, hematologic, and immunologic) nega tive, except for eye symptoms, allergic asthma, and Afib Past Medical History: Diagnosis Date A-fib ([facility]) History reviewed. No pertinent past surgical history. Allergies: Review of patient's allergies indicates no known allergies. Pt reports that she has never smoked. She does not have any smokeless tobacco history on ile. Examination Mental status: Alert and oriented x 3 VAsc VAph sc VAcc VAph cc OD 20/20 OS 20/20 IGRACIELA, performed, reviewed and revised the above history, medications, allergie s, as well as performed the following elements noted in the Base Ophthalmology Exam: visual acuity, IOP Motility: Ortho in primary gaze, full OU Slit lamp Exam IOP: OD 14, OS 13 by Applanation at 12:26 PM. Right Left Gonioscopy (03/14/2017) C35f 1+ptm C35f 1+ptm Lids / Lashes Normal Normal Conjunctiva / Sclera* White and quiet White and quiet Cornea All layers clear, no KS All layers clear, no KS Anterior Chamber Deep and quiet Deep and quiet Iris Normal, no TIDs Normal, no TIDs Lens PCIOL PCIOL *Conjunctiva includes bulbar and palpebral, unless otherwise noted. Cornea includes epithelium, stroma and endothelium, unless otherwise noted. Fundus exam Dilated with tropicamide 1% and phenylephrine 2.5% OU at No Value exists for th e SALES LEADER: EPIC#[id number] Right Left Disc diffusely thin, but intact 0.6 Superior undermining, Inferior erosion 0.9 Macula Normal Normal Vitreous Normal Normal Periphery Optic nerve photos 03/14/2017 Good quality bilateral stereo disc photos taken today documenting nerves as described above , for documentation and future comparison. 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 NTG OS>>OD - in the setting of thin CCT. 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 IOPs today are nearly at target OS. SLT is an option. 2. Pseudophakia OU 3. A-fib on oral beta joshua and diltiazem, with low systemic BP SLT OS today Continue dorzolamide BID OS Continue latanoprost qHS OU Follow up with Dr. Valle locally in 2 month for IOP check and new baseline HVF testing RTC here if clear progression on HVF testing after new baseline post SLT establishd STL Procedure note: I discussed options for treating glaucoma, indications for SLT, prognosis, overview of SLT procedure, alternatives including options/goals, and risks including but not limited to loss of vision. The patient was given a chance to ask questions. Consent Signed: Yes Orders: Iopidine Laser: SLT Anesthesia: Proparacaine topical Parameters: Power: 0.8-1.4 mJ Number: 80 Area treated: 360' Outcome: Well tolerated Complications: None Specimens: None IOP check at 1 hour: 10 mmHg Julia Castle MD, PhD Nutritionist Public Health of Ophthalmology Glaucoma [facility] documented in th is encounter Plan of Treatment Not on filedocumented as of this encounter Procedures + +--------+ + + + | Procedure Name | Priori | Date/Time | Associated Diagnosis | Comments | | | ty | | | | + +--------+ + + + | ID LASER SURGERY OF | Routin | 05/23/2017 | Low tension | | | EYE | e | 12:48 PM | glaucoma of left | | | | | PDT | eye, severe stage | | | | | | Low tension glaucoma | | | | | | of right eye, mild | | | | | | stage Pseudophakia, | | | | | | both eyes | | + +--------+ + + + | ID LASER SURGERY OF | Routin | 05/23/2017 | Low tension | | | EYE | e | 12:48 PM | glaucoma of left | | | | | PDT | eye, severe stage | | | | | | Low tension glaucoma | | | | | | of right eye, mild | | | | | | stage Pseudophakia, | | | | | | both eyes | | + +--------+ + + + documented in this encounter Visit Diagnoses + + | Diagnosis | + + | Low tension glaucoma of left eye, severe stage - Primary | + + | Low tension glaucoma of right eye, mild stage | + + | Pseudophakia, both eyes Lens replaced by other means | + + documented in this encounter"
--- OUTSIDE RECORDS SUMMARY | ~2020-08-25 | XMS | Encounter Summary ---
Demographics + + + | Address | [address] [place] [address] RD | | | [place] [address] | + + + | Home Phone | | + + + | Preferred Language | Unknown | + + + | Marital Status | | + + + | Confucianist Affiliation | Unknown | + + + [...] | José Antonio Craig | ECON | [address] | | | | | [place], [place] | | | | | [address] | | + + + + + | José Antonio Craig | ECON | [address] | | | | | [place], [place] | | | | | [address] | | + + + + + Care Team Providers + +------+ + | Care Gaming Dealer Name | Role | Phone | + +------+ + | Alverto Olvera MD | PCP | | + +------+ + Reason for Visit +---------+ + | Reason | Comments | +---------+ + | Consult | | +---------+ + Encounter Details +--------+---------+ + + + | Date | Type | Department | Care Team | Description | +--------+---------+ + + + | 08/03/ | Office | [facility] | Dominik Tijerina PA | ANTHONY on CPAP (Primary | | 2013 | Visit | SLEEP DISORDER [address] | [address] | Dx); Nasal | | | | [address] | [place] | congestion | | | | [place] [address] | [address] | | | | | [phone] | | | +--------+---------+ + + + [...] + | Blood Pressure | 110/70 | 08/03/2014 8:44 AM | | | | | PDT | | + + + + + | Pulse | 59 | 08/03/2014 8:44 AM | | | | | PDT | | + + + + + | Temperature | - | - | | + + + + + | Respiratory Rate | 14 | 08/03/2014 8:44 AM | | | | | PDT | | + + + + + | Oxygen Saturation | 97% | 08/03/2014 8:44 AM | | | | | PDT | | + + + + + | Inhaled Oxygen | - | - | | | Concentration | | | | + + + + + | Weight | 100.5 kg (221 lb 8 | 08/03/2014 8:44 AM | | | | oz) | PDT | | + + + + + | Height | 177.8 cm (5' 10") | 08/03/2014 8:44 AM | | | | | PDT | | + + + + + | Body Mass Index | 31.78 | 08/03/2014 8:44 AM | | | | | PDT | | + + + + + documented in this encounter Progress Notes Dominik Tijerina PA - 08/03/2014 8:46 AM PDT Subjective: Patient ID: Carley Craig is a 64 y.o. female. HPI last office visit was: 07/27/2013 date of polysomnography: 04/06/2013 AHI: 34.7 RDI: 55.5 O2%: 80% with 114.1 minutes below 88% Machine type: ResMed S9 with nasal mask obtained from: [facility] [place] pressure: 8-15 cm (increased from 8-10 cm) 95%: 13.3 cm maxium: 14.4 cm Nights using CPAP: 355/365 % of nights >4 hours: 93% average usage (all nights): 7:05 average usage (nights used): 7:18 AHI: 1.6 Carley comes in for CPAP compliance. She continues to do well with her CPAP. She is wear ing it on a nightly basis for the duration of the night. She does not consider sleeping wit hout it. She is sleeping better and feels more rested during the day with more energy. Her only challenge has been with congestion. This is typical for her at this time of year. He r seasonal allergies cause the congestion from May to August. She feels that she is openi ng her mouth during the night and is waking with a dry mouth. Her download shows that her l eaks have been worse during the last 1-2 months. She has tried a full face mask in the past , but it did not fit well and leaked most of the night. I have discussed the download and results of the paperwork in detail. She is unchanged or improved in nearly all categories, with no areas of concern. The download shows that her sl eep apnea is well controlled, with an AHI of 1.6. It also shows that her leaks are well con trolled. Review of Systems Objective: Physical Exam Assessment: Problem #1: OBSTRUCTIVE SLEEP APNEA (327.23) This is well controlled with CPAP. Her CPAP compliance is going well. Problem #2: NASAL CONGESTION (478.19) She has seasonal allergies that cause congestion this time of year for 1-3 months. Plan: She is to continue with CPAP indefinitely. She is to increase her humidity further if nece ssary. If her dry mouth continues, she is to wear her chin strap or consider a full face ma sk. She may be interested in trying flonase in the future. I have recommended that she lilibeth ch base with her medical supplier twice per year to ensure that her equipment is satisfactor y. I will follow up again in 1 year, sooner prn. At that time we will reassess with all appro piate paperwork. Fifteen minutes were spent oscy-dd-kwas, with the majority of time spent i n counseling. Dominik Tijerina PA-C cc: Dr. Pérez Olvera Nghia Collier, Neurod iagnBurst Media Tech - 08/03/2014 8:39 AM PDT 08/03/14 0800 Gandhi Depression Inventory-II Depression Score 0- No Depression Insomnia Severity Index Insomnia Severity Index 6 [place]rell Sleepiness Scale Sitting and reading 1 Watching [...] 0 Total score 6 SF-36v2 Score PF 52.82 RP 56.85 BP 50.29 GH 48.17 VT 58.33 SF 56.85 RE 55.88 MH 55.64 PCS 51.05 MCS 57.6 documented in this enc ounter Miscellaneous Notes Miscellaneous - ONBASE SCAN [facility] - 08/03/2014 12:00 AM PDT iscellaneous - ONBASE SCAN [facility] - 08/03/2014 12:00 AM PDTEle ctronically signed by Benny Hoffman at 08/04/2014 10:01 AM PDTdocumented in this encounter Plan of [...] [place] | | | | | | [address] | | | | | | | | +--------+---------+ + + + documented as of this encounter Visit Diagnoses + + | Diagnosis | + + | ANTHONY on CPAP - Primary Obstructive sleep apnea (adult) (pediatric) | + + | Nasal congestion Other diseases of nasal cavity and sinuses | + + documented in this encounter
--- OUTSIDE RECORDS SUMMARY | ~2020-08-25 | XMS | Encounter Summary ---
Demographics + + + | Address | [address] [place] [address] RD | | | [place] [address] | + + + | Home Phone | | + + + | Preferred Language | Unknown | + + + | Marital Status | | + + + | Temple Affiliation | Unknown | + + + | Race | White | + + + | Ethnic Group | Not or | + + + Author + + + | Author | [facility] | | | and [place] | + + + | Organization | [facility] | | | and [place] | + + + | Address | Unknown | + + + | Phone | Unavailable | + + + Support + + + + + | Name | Relationship | Address | Phone | + + + + + | José Antonio Craig | ECON | [address] | | | | | [place], [place] | | | | | [address] | | + + + + + | José Antonio Craig | ECON | [address] | | | | | [place], [place] | | | | | [address] | | + + + + + Care Team Providers + +------+ + | Care Spinning Frame Changer Name | Role | Phone | + [...] + + | 07/18/ | Office | [facility] | Dominik Tijerina PA | ANTHONY on CPAP (Primary | | 2020 | Visit | SLEEP DISORDER [address] | [address] | Dx) | | | | [address] [place] | [place] | | | | | [place] [address] | [address] | | | | | [phone] | | | +--------+---------+ + + + [...] encounter Progress Notes Dominik Tijerina PA - 07/18/2020 3:30 PM PDT Subjective: Patient ID: Carley Craig is a 70 y.o. female. HPI last office visit: 09/29/2018 date of polysomnography: 04/06/2013 AHI: 34.7 RDI: 55.5 O2%: 80% with 114.1 minutes below 88% Machine type: ResMed S9 Mask type: nasal mask DME: [facility] [place] pressure: 8-15 cm (increased from 8-10 cm) Median: 11.2 cm 95%: 13.9 cm maxium: 14.9 cm Nights using CPAP: 365/365 % of nights >4 hours: 100% average usage (all nights): 8:57 average usage (nights used): 8:57 AHI: 1.1 Carley comes in for CPAP compliance. She continues to do well with her CPAP. She is wear ing it on a nightly basis for the duration of the night. She does not consider sleeping wit hout it. Her ResMed S9 recently showed a message that her machine was nearing the end of it s operating life. She would like to get a new machine. I have discussed the download and results of the paperwork in detail. The download shows t hat her sleep apnea is controlled, with an AHI of 1.1. It also shows that her leaks are con trolled. Objective: BP 126/70 | Pulse 89 | Resp 16 | Wt 104.3 kg (229 lb 15 oz) | SpO2 97% | BMI 32.99 kg/ m Assessment: Problem #1: OBSTRUCTIVE SLEEP APNEA (VZN03-L98.33) She has moderate/severe apnea. This is controlled with CPAP. Her CPAP compliance is going well, but her machine needs to be replaced. Plan: 1. She is to continue with CPAP indefinitely. 2. We have faxed a prescription to [facility] [place] for a ResMed AirSense 10 w ith a pressure range of 8-15 cm. I will follow up again in 2 months, sooner prn. Fifteen minutes were spent fnij-hl-omoa, w ith the majority of time spent in counseling. Dominik Tijerina PA-C cc: Alverto Olvera MD lores, Natty, Medical A ssistant - 07/18/2020 3:30 PM PDTFormatting of this note might be different from the origin al. 07/18/20 1500 Gandhi Depression Inventory-II Depression Score 1 - Minimal depression Insomnia Severity Index Insomnia Severity Index 5 [place] Sleepiness Scale 1. Sitting and reading 1 2. Watching TV 1 3. Sitting, inactive in a public place (e.g. a theatre or a meeting) 0 4. As a passenger in a car for an hour without a break 1 5. Lying down to rest in the afternoon when circumstances permit 2 6. Sitting and talking to someone 0 7. Sitting quietly after a lunch without alcohol 1 8. In a car, while stopped for a few minutes in traffic 0 Total score 6 SF-36v2 Score PF 47.97 RP 50.42 BP 30.55 GH 53.19 VT 58.54 SF 57.34 RE 56.17 MH 58.72 PCS 40.99 MCS 63.15 documented in this enco unter Plan of [...] [place] | | | | | | [address] | | | | | | | | +--------+---------+ + + + documented as of this encounter Visit Diagnoses + + | Diagnosis | + + | ANTHONY on CPAP - Primary Obstructive sleep apnea (adult) (pediatric) | + + documented in this encounter"
--- OUTSIDE RECORDS SUMMARY | ~2020-08-25 | XMS | Encounter Summary ---
Demographics + + + | Address | [address] [place] [address] RD | | | [place] [address] | + + + | Home Phone | | + + + | Preferred Language | Unknown | + + + | Marital Status | | + + + | Caodaism Affiliation | Unknown | + + + | Race | White | + + + | Ethnic Group | Not or | + + + Author + + + | Author | [facility] | | | and [place] | + + + | Organization | [facility] | | | and [place] | + + + | Address | Unknown | + + + | Phone | Unavailable | + + + Support + + + + + | Name | Relationship | Address | Phone | + + + + + | José Antonio Craig | ECON | [address] | | | | | [place], [place] | | | | | [address] | | + + + + + | José Antonio Craig | ECON | [address] | | | | | [place], [place] | | | | | [address] | | + + + + + Care Team Providers + +------+ + | Care Aging Box Hand Name | Role | Phone | + +------+ + | Alverto Olvera MD | PCP | | + +------+ + Encounter Details +--------+ + + + + | Date | Type | Department | Care Team | Description | +--------+ + + + + | 04/06/ | Hospital | [facility] | Antolin Mederos | | | 2012 | Encounter | MED CTR SLEEP | MD Brett [address] | | | | | ETHEL [address] | [place] [place] [facility] | | | | | [place], [place] | [place] [address] | | | | | [address] | [phone] | | | | | [phone] | | | +--------+ + + + [...] [place] | | | | | | [id number] | | | | | | | | +--------+---------+ + + + documented as of this encounter Visit Diagnoses Not on filedocumented in this encounter"
--- OUTSIDE RECORDS SUMMARY | ~2020-08-25 | XMS | Encounter Summary ---
Demographics + + + | Address | [address] [place] [address] RD | | | [place] [address] | + + + | Home Phone | | + + + | Preferred Language | Unknown | + + + | Marital Status | | + + + | Episcopalian Affiliation | Unknown | + + + | Race | White | + + + | Ethnic Group | Not or | + + + Author + + + | Author | [facility] | | | and [place] | + + + | Organization | [facility] | | | and [place] | + + + | Address | Unknown | + + + | Phone | Unavailable | + + + Support + + + + + | Name | Relationship | Address | Phone | + + + + + | José Antonio Craig | ECON | [address] | | | | | [place], [place] | | | | | [address] | | + + + + + | José Antonio Craig | ECON | [address] | | | | | [place], [place] | | | | | [address] | | + + + + + Care Team Providers + +------+ + | Care Golf Teacher Name | Role | Phone | [...] + + | 03/02/ | Refill | [facility] | Campos Pabon, | Medication Refill | | 2019 | | [facility] | [address] | | | | | [address] | [place] [address] | | | | | [place], [place] | [phone] | | | | | [address] | | | | | | [phone] | | | +--------+--------+ + + + [...] [place] | | | | | | [id number] | | | | | | | | +--------+---------+ + + + documented as of this encounter Visit Diagnoses Not on filedocumented in this encounter"
--- OUTSIDE RECORDS SUMMARY | ~2020-08-25 | XMS | Encounter Summary ---
Demographics + + + | Address | [address] [place] [address] RD | | | [place] [address] | + + + | Home Phone | | + + + | Preferred Language | Unknown | + + + | Marital Status | | + + + | Zoroastrian Affiliation | Unknown | + + + [...] | José Antonio Craig | ECON | [address] | | | | | [place], [place] | | | | | [address] | | + + + + + | José Antonio Craig | ECON | [address] | | | | | [place], [place] | | | | | [address] | | + + + + + Care Team Providers + +------+ + | Care Environment Friendly Landscape Designer Name | Role | Phone | + [...] Description | +--------+--------+ + + + | 01/31/ | Refill | [facility] | [facility] | Medication Refill | | 2020 | | CARDIOLOGY [place] | MD Paola ADAMSON | (Metoprolol) | | | | [address] | [place], [place] | | | | | [place], [place] | [address] | | | | | [address] | | | | | | [phone] | | | +--------+--------+ + + + [...] [place] | | | | | | [id number] | | | | | | | | +--------+---------+ + + + documented as of this encounter Visit Diagnoses Not on filedocumented in this encounter"
--- OUTSIDE RECORDS SUMMARY | ~2020-08-25 | XMS | Encounter Summary ---
Demographics + + + | Address | [address] [place] [address] RD | | | [place] [address] | + + + | Home Phone [...] Author + + + | Author | [facility] | | | and [place] | + + + | Organization | [facility] | | | and [place] | + + + | Address | Unknown | + + + | Phone | Unavailable | + + + Support + + + + + | Name | Relationship | Address | Phone | + + + + + | José Antonio Craig | ECON | [address] | | | | | [place], [place] | | | | | [address] | | + + + + + | José Antonio Craig | ECON | [address] | | | | | [place], [place] | | | | | [address] | | + + + + + Care Team Providers + +------+ + | Care Dba Name | Role | Phone | + +------+ + | Alverto Olvera MD | PCP | | + +------+ + Encounter Details +--------+ + + + + | Date | Type | Department | Care Team | Description | +--------+ + + + + | 06/28/ | Orders Only | [facility] | Provider, | | | 2018 | | SYSTEM GENERIC OP | [address] | | | | | [address] | Jhony Chavez | | | | | [address] [place], [place] | [place] [address] | | | | | [address] | | | | | | [phone] | | | +--------+ + + + [...] [place] | | | | | | [address] | | | | | | | | +--------+---------+ + + + documented as of this encounter Visit Diagnoses Not on filedocumented in this encounter"
--- OUTSIDE RECORDS SUMMARY | ~2020-08-25 | XMS | Encounter Summary ---
Demographics + + + | Address | [address] [place] [address] RD | | | [place] [address] | + + + | Home Phone | | + + + | Preferred Language | Unknown | + + + | Marital Status | | + + + | Adventist Affiliation | Unknown | + + + | Race | White | + + + | Ethnic Group | Not or | + + + Author + + + | Author | [facility] | | | and [place] | + + + | Organization | [facility] | | | and [place] | + + + | Address | Unknown | + + + | Phone | Unavailable | + + + Support + + + + + | Name | Relationship | Address | Phone | + + + + + | José Antonio Craig | ECON | [address] | | | | | [place], [place] | | | | | [address] | | + + + + + | José Antonio Craig | ECON | [address] | | | | | [place], [place] | | | | | [address] | | + + + + + Care Team Providers + +------+ + | Care Engine Maintenance Mechanic Name | Role | Phone | + [...] + + | 03/07/ | Refill | [facility] | Jamee Carson, | Medication Refill | | 2020 | | CARDIOLOGY [facility] | [address] | | | | [address] | [place], [place] | | | | | [place], [place] | [id number] | | | | | [address] | | | | | | [phone] | | | +--------+--------+ + + + [...] [place] | | | | | | [id number] | | | | | | | | +--------+---------+ + + + documented as of this encounter Visit Diagnoses Not on filedocumented in this encounter"
--- OUTSIDE RECORDS SUMMARY | ~2020-08-25 | XMS | Encounter Summary ---
Demographics + + + | Address | [address] [place] [address] Rd | | | [place] [address] | + + + | Home Phone | | + + + | Preferred Language | Unknown | + + + | Marital Status | | + + + | Jainism Affiliation | Unknown | + + + | Race | White | + + + | Ethnic Group | Not or | + + + Author + + + | Author | [facility] | + + + | Organization | [facility] | + + + | Address | Unknown | + + + | Phone | Unavailable | + + + Support + + +---------+ + | Name | Relationship | Address | Phone | + + +---------+ + | José Antonio Craig | ECON | Unknown | | + + +---------+ + Care Team Providers + +------+ + | Care Inclusion Special Educator Name | Role | Phone | + +------+ + | Alverto Olvera MD | PCP | | + +------+ + Reason for Visit + + + | Reason | Comments | + + + | New patient | | | consultation | | + + + | Glaucoma | | + + + Encounter Details +--------+---------+ + + + | Date | Type | Department | Care Team | Description | +--------+---------+ + + + | 03/14/ | Office | [facility] | Julia Castle, | 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 Glaucoma Clinic Note: 03/14/2017 Glaucoma Diagnosis: Referred by: Shawna Rosales NTG OS>OD HPI: Carley Craig is a 66 y.o. female Referred for glaucoma evaluation. Dx with glaucoma several years ago - IOPs have typically been in low-mid double digits on latanoprost, but VF worsening recently. Now on timolol as w ell. Noticing superior field loss, blurriness in the left eye. Gets some transient aching OS , but otherwise comfortable. Eye medications: Timolol qam OU - 9:45am Latanoprost qhs OU - 6:00pm Current Medication List Name Sig APIXABAN 5 [...] systemic BP. Other ocular diagnoses: Pseudophakia OU Ocular procedures: OD OS Phaco/IOL YAG Phaco/IOL YAG OD OS Max IOP 19 17 Pachymetry [...] Flomax use? Never Anticoagulation? 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 12 review of systems (in cluding constitutional symptoms, ENT, cardiovascular, respiratory, gastrointestinal, genitou rinary, integumetary, neurologic, psychiatric, endocrine, hematologic, and immunologic) nega tive, except for eye symptoms, allergic asthma, and Afib Past Medical History: Diagnosis Date A-fib (HCC) History reviewed. No pertinent past surgical history. Allergies: Review of patient's allergies indicates no known allergies. Pt reports that she has never smoked. She does not have any smokeless tobacco history on . Examination Mental status: Alert and oriented x 3 VAsc VAph sc VAcc VAph cc WRx OD 20/25 +2 -2.25 +0.25 at 002 OS 20/60 +2 20/25 -3 -2.00 Sphere at Add +2.25 IGRACIELA, performed, reviewed and revised the above history, medications, allergie s, as well as performed the following elements noted in the Base Ophthalmology Exam: visual acuity, pupils, EOMs, CVF, pachymetry. Motility: Ortho in primary gaze, full OU Slit lamp Exam IOP: OD 16, OS 16 by Applanation at 1:05 PM. Right Left Gonioscopy (03/14/2017) C35f 1+ptm [...] tropicamide 1% and phenylephrine 2.5% OU at 1:09 PM Right Left Disc diffusely thin, but intact 0.6 Superior undermining, Inferior erosion 0.9 Macula Normal Normal Vitreous Normal Normal Periphery Normal Normal Optic nerve photos 03/14/2017 Good quality bilateral stereo disc photos taken today documenting nerves as described above , for documentation and future comparison. Visual Field Interpretation ([facility] 01/27/2017) Thompson 24-2 visual field OD: [...] OS>>OD - in the setting of thin CCT and low systemic BP. 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 Concern for progression d ue to nocturnal hypotension. Needs lower IOP OS, with target of about 12. Timolol likely not a great option for her given asthma and low systemic BP. Will try dorzolamide. SLT is also an option. 2. Pseudophakia OU 3. A-fib on oral beta joshua and diltiazem, with low systemic BP D/C timolol Start dorzolamide BID OS Continue latanoprost qHS OU Take beta joshua in AM if okay with PCP Letter to PCP Follow up with Dr. Valle locally in 1 month for IOP check Check BP at home before/after sleep RTC for SLT if IOP not at target or if continuing to progress Julia Castle MD, PhD Time Study Observer of Ophthalmology Glaucoma Service [facility] documented in th is encounter Plan of Treatment + + +--------+ + + | Name | Type | Priori | Associated Diagnoses | Order Schedule | | | | ty | | | + + +--------+ + + | COLOR PHOTOGRAPHY | Procedures | Routin | Low tension | Expected: | | | | e | glaucoma of left | 03/14/2017, Expires: | | | | | eye, severe stage | 09/13/2018 | + + +--------+ + + documented as of this encounter Procedures + +--------+ + + + | Procedure Name | Priori | Date/Time | Associated Diagnosis | Comments | | | ty | | | | + +--------+ + + + | TX FUNDAL | Routin | 03/14/2017 | Low tension | | | PHOTOGRAPHY | e | 9:06 PM | glaucoma of left | | | | | PDT | eye, severe stage | | | | | | Low tension glaucoma | | | | | | of right eye, mild | | | | | | stage Pseudophakia, | | | | | | both eyes | | + +--------+ + + + | [facility] | Routin | 03/14/2017 | Low tension | | | KYLEE YINAIN | e | 9:06 PM | glaucoma of left | | [...]
--- OUTSIDE RECORDS SUMMARY | ~2020-08-25 | XMS | Encounter Summary ---
Demographics + + + | Address | [address] [place] [address] RD | | | [place] [address] | + + + | Home Phone | | + + + | Preferred Language | Unknown | + + + | Marital Status | | + + + | Voodoo Affiliation | Unknown | + + + [...] | José Antonio Craig | ECON | [address] | | | | | [place], [place] | | | | | [address] | | + + + + + | José Antonio Craig | ECON | [address] | | | | | [place], [place] | | | | | [address] | | + + + + + Care Team Providers + +------+ + | Care Car Hopper Name | Role | Phone | + +------+ + | Alverto Olvera MD | PCP | | + +------+ + Reason for Visit +---------+--------+ + | Reason | Onset | Comments | | | Date | | +---------+--------+ + | Results | 02/16/ | Echo | | | 2020 | | +---------+--------+ + Encounter Details +--------+ + + + + | Date | Type | Department | Care Team | Description | +--------+ + + + + | 02/16/ | Telephone | [facility] | Jamee Carson, | Results (Echo) | | 2020 | | [facility]ARDIOLOGY [facility] | [address] | | | | | [address] | [place], [place] | | | | | [place], [place] | [address] | | | | | [address] | | | | | | [phone] | | | +--------+ + + + [...] this encounter Miscellaneous Notes Telephone Encounter - Vanita Monreal Medical Assistant - 02/17/2020 1:09 PM PDTCalled p atient to inform, left voicemail. MICAELA Palencia elep perry Encounter - Vanita Monreal Medical Assistant - 02/17/2020 1:09 PM PDT----- Message from Jamee Carson MD sent at 02/17/2020 11:30 AM PDT ----- Normal heart function. Mitral valve stable at moderate regurgitation/leakage. I can call her later in the day.... ----- Message ----- From: Janna Palencia Sent: 02/17/2020 11:09 AM PDT To: Jamee Carson MD Patient called in requesting echo results, I emailed you the report. docum ented in this encounter Plan of Treatment +--------+---------+ + + + | Date | Type | Specialty | Care Team | Description | +--------+---------+ + + + | 09/20/ | Office | Sleep Medicine | Dominik Tijerina PA | | | 2020 | Visit | | [address] | | | | | | [place] | | | | | | [address] | | | | | | | | +--------+---------+ + + + documented as of this encounter Visit Diagnoses Not on filedocumented in this encounter"
--- OUTSIDE RECORDS SUMMARY | ~2020-08-25 | XMS | Encounter Summary ---
Demographics + + + | Address | [address] [place] [address] RD | | | [place] [address] | + + + | Home Phone | | + + + | Preferred Language | Unknown | + + + | Marital Status | | + + + | Episcopal Affiliation | Unknown | + + + | Race | White | + + + | Ethnic Group | Not or | + + + Author + + + | Author | [facility] | | | and [place] | + + + | Organization | [facility] | | | and [place] | + + + | Address | Unknown | + + + | Phone | Unavailable | + + + Support + + + + + | Name | Relationship | Address | Phone | + + + + + | José Antonio Craig | ECON | [address] | | | | | [place], [place] | | | | | [address] | | + + + + + | José Antonio Craig | ECON | [address] | | | | | [place], [place] | | | | | [address] | | + + + + + Care Team Providers + +------+ + | Care Molded Goods Spot Picker Name | Role | Phone | + +------+ + | Alverto Olvera MD | PCP | | + +------+ + Encounter Details +--------+ + + + + | Date | Type | Department | Care Team | Description | +--------+ + + + + | 04/01/ | Orders Only | [facility] | Parul Winn | | | 2017 | | [address] | | | | | [address] | [address] | | | | | [place], [place] | [place] [address] | | | | | [address] | [phone] | | | | | [phone] | | | +--------+ + + + [...] 2019 | Visit | | [address] | | | | | | [place] | | | | | | [address] | | | | | | | | +--------+---------+ + + + documented as of this encounter Procedures + +--------+ + + + | Procedure Name | Priori | Date/Time | Associated Diagnosis | Comments | | | ty | | | | + +--------+ + + + | ECHO INTERPRETATION | Routin | 04/01/2017 | | Results for this | | OF OUTSIDE FILMS | e | 11:22 AM | | procedure are in the | | | | PDT | | results section. | + +--------+ + + + documented in this encounter Results ECHO Interpretation of Outside Films (04/01/2017 11:22 AM PDT) + + | Specimen | + + | | + + + + + | Impressions | Performed At | + + + | 1. Atrial fibrillation. 2. Overall left ventricular systolic | | | function is normal with, an EF between 60 - 65 %. 3. The right | | | ventricle is normal in size and function. 4. The left atrium is | | | moderately enlarged. 5. The right atrium is mildly enlarged. 6. | | | Xmys-be-ktdycxyn mitral regurgitation is present. 7. Mild tricuspid | | | regurgitation present. | | + + + + + + | Narrative | Performed At | + + + | Patient Name: Carley Craig Date of : 1950 | | | Performing Physician: MARCO CONNELLY MD | | | | | | INDICATIONS afib, htn CONCLUSIONS 1. | | | Atrial fibrillation. 2. Overall left ventricular systolic function is | | | normal with, an EF between 60 - 65 %. 3. The right ventricle is | | | normal in size and function. 4. The left atrium is moderately | | | enlarged. 5. The right atrium is mildly enlarged. 6. | | | Csga-dz-yplcoojn mitral regurgitation is present. 7. Mild tricuspid | | | regurgitation present. FINDINGS -------- ECG rhythm: Atrial | | | fibrillation. Study: A 2-dimensional transthoracic echocardiogram | | | with m-mode, spectral and color flow Doppler was perfomed at [facility] | | | [facility]. Study: This was a technically adequate study. Left | | | Ventricle: Overall left ventricular systolic function is normal with, | | | an EF between 60 - 65 %. Left Ventricle: The left ventricle cavity | | | size is normal. Left Ventricle: Left ventricular wall thickness is | | | normal. Right Ventricle: The right ventricle is normal in size and | | | function. Left Atrium: The left atrium is moderately enlarged. Right | | | Atrium: The right atrium is mildly enlarged. Aortic Valve: The | | | aortic valve is trileaflet, and appears anatomically normal. No aortic | | | stenosis or regurgitation. Mitral Valve: Normal appearing mitral | | | valve. Mitral Valve: Ffru-iz-vrotdcwp mitral regurgitation is | | | present. Tricuspid Valve: The tricuspid valve appears structurally | | | normal. Tricuspid Valve: Mild tricuspid regurgitation present. | | | Tricuspid Valve: There is no evidence of pulmonary hypertension. | | | Tricuspid Valve: The right ventricular systolic pressure (pulmonary | | | artery systolic pressure), as measured by Doppler, is 31.44mmHg. | | | Pulmonic Valve: Pulmonic valve appears structurally normal. Pulmonic | | | Valve: Trace pulmonic regurgitation. Pericardium: There is no | | | pericardial effusion. IVC/Hepatic Veins: The inferior vena cava is | | | normal in size and collapses > 50 % with sniff, indicating normal | | | central venous pressures. Aorta: The aortic root, ascending aorta and | | | aortic arch are normal. Mass: No mass visualized Thrombus: No clot | | | visualized Thrombus: No vegetation visualized. Septum: No ASD | | | observed. Septum: No VSD observed. MEASUREMENTS | | | Ao Diam: 2.92 cm IVC: 2.36 cm LA Diam: 5.30 cm EDV(Teich): | | | 116.09 ml IVSd: 1.01 cm LVIDd: 4.96 cm LVPWd: 0.96 cm | | | LVOT Area: 3.43 cm2 LVOT Diam: 2.09 cm %FS: 35.85 % | | | EF(Teich): 65.19 % ESV(Teich): 40.40 ml LVIDs: 3.18 cm | | | SV(Teich): 75.69 ml RVIDd: 2.88 cm LVEF MOD A2C: 64.19 % | | | SV MOD A2C: 59.66 ml LVEF MOD A4C: 59.72 % SV MOD A4C: | | | 62.14 ml EF Biplane: 61.70 % LVEDV MOD BP: 98.22 ml LVESV MOD | | | BP: 37.61 ml LVEDV MOD A2C: 92.93 ml LVLd A2C: 8.06 cm | | | LVEDV MOD A4C: 104.06 ml LVLd A4C: 8.01 cm LVESV MOD A2C: | | | 33.27 ml LVLs A2C: 6.63 cm LVESV MOD A4C: 41.91 ml LVLs A4C: | | | 6.82 cm LAESV(A-L): 113.04 ml LAESV Index (A-L): 51.85 | | | ml/m2 LAAs A2C: 24.90 cm2 LAESV A-L A2C: 98.04 ml LALs A2C: | | | 5.36 cm LAAs A4C: 28.71 cm2 LAESV A-L A4C: 124.25 ml LALs | | | A4C: 5.63 cm RAAs: 22.24 cm2 RAESV A-L: 72.63 ml RAESV | | | MOD: 69.73 ml RALs: 5.78 cm AV maxP.96 mmHg AV meanPG: | | | 2.17 mmHg AV Vmax: 0.99 m/s AV Vmean: 0.70 m/s AV VTI: | | | 17.42 cm GUANACO Vmax: 2.53 cm2 GUANACO (VTI): 2.79 cm2 AVAI Vmax: | | | 0.00 cm2/m2 AVAI (VTI): 0.00 cm2/m2 LVOT maxP.16 mmHg | | | LVOT meanP.27 mmHg LVSI Dopp: 22.36 ml/m2 LVSV Dopp: | | | 48.74 ml LVOT Vmax: 0.73 m/s LVOT Vmean: 0.54 m/s LVOT VTI: | | | 14.18 cm MV E Juan: 0.87 m/s MV DecT: 163.28 ms Septal e': | | | 0.10 m/s Septal E/e': 8.53 Lateral e': 0.14 m/s Lateral | | | E/e': 6.16 RAP: 5 mmHg RVSP: 31.44 mmHg TR maxP.44 | | | mmHg TR Vmax: 2.57 m/s Tool Marker: DBS Authenticated by: | | | MARCO CONNELLY MD Report Date/Time: 04-01-2017 18:01:51 | | + + + + + | Procedure Note | + + | Marcos Rad Conversion - 07/22/2019 6:54 PM PDT Patient Name: Ector Craig of | | : 1950 Performing Physician: MARCO CONNELLY, | | INDICATIONS a | | fib, htn CONCLUSIONS 1. Atrial fibrillation.2. Overall left ventricular | | systolic function is normal with, an EF between 60 - 65 %.3. The right ventricle is | | normal in size and function.4. The left atrium is moderately enlarged.5. The right | | atrium is mildly enlarged.6. Wsju-vo-mvehanit mitral regurgitation is present.7. Mild | | tricuspid regurgitation present. FINDINGS--------ECG rhythm: Atrial fibrillation.Study: | | A 2-dimensional transthoracic echocardiogram with m-mode, spectral and color flow | | Doppler was perfomed at [facility].Study: This was a technically adequate | | study.Left Ventricle: Overall left ventricular systolic function is normal with, an EF | | between 60 - 65 %.Left Ventricle: The left ventricle cavity size is normal.Left | | Ventricle: Left ventricular wall thickness is normal.Right Ventricle: The right | | ventricle is normal in size and function.Left Atrium: The left atrium is moderately | | enlarged.Right Atrium: The right atrium is mildly enlarged.Aortic Valve: The aortic | | valve is trileaflet, and appears anatomically normal. No aortic stenosis or | | regurgitation.Mitral Valve: Normal appearing mitral valve.Mitral Valve: Vuhx-qg-imyaqera | | mitral regurgitation is present.Tricuspid Valve: The tricuspid valve appears | | structurally normal.Tricuspid Valve: Mild tricuspid regurgitation present.Tricuspid | | Valve: There is no evidence of pulmonary hypertension.Tricuspid Valve: The right | | ventricular systolic pressure (pulmonary artery systolic pressure), as measured by | | Doppler, is 31.44mmHg.Pulmonic Valve: Pulmonic valve appears structurally | | normal.Pulmonic Valve: Trace pulmonic regurgitation.Pericardium: There is no | | pericardial effusion.IVC/Hepatic Veins: The inferior vena cava is normal in size and | | collapses > 50 % with sniff, indicating normal central venous pressures.Aorta: The | | aortic root, ascending aorta and aortic arch are normal.Mass: No mass | | visualizedThrombus: No clot visualizedThrombus: No vegetation visualized.Septum: No ASD | | observed.Septum: No VSD observed. MEASUREMENTS Ao Diam: 2.92 cmIVC: 2.36 | | cmLA Diam: 5.30 cmEDV(Teich): 116.09 mlIVSd: 1.01 cmLVIDd: 4.96 cmLVPWd: 0.96 | | cmLVOT Area: 3.43 [id number] Diam: 2.09 cm%FS: 35.85 %EF(Teich): 65.19 | | %ESV(Teich): 40.40 mlLVIDs: 3.18 cmSV(Teich): 75.69 mlRVIDd: 2.88 cmLVEF MOD | | A2C: 64.19 %SV MOD A2C: 59.66 mlLVEF MOD A4C: 59.72 %SV MOD A4C: 62.14 mlEF | | Biplane: 61.70 %LVEDV MOD BP: 98.22 mlLVESV MOD BP: 37.61 mlLVEDV MOD A2C: 92.93 | | mlLVLd A2C: 8.06 cmLVEDV MOD A4C: 104.06 mlLVLd A4C: 8.01 cmLVESV MOD A2C: | | 33.27 mlLVLs A2C: 6.63 cmLVESV MOD A4C: 41.91 mlLVLs A4C: 6.82 cmLAESV(A-L): | | 113.04 mlLAESV Index (A-L): 51.85 ml/m2LAAs A2C: 24.90 [id number] A-L A2C: 98.04 | | mlLALs A2C: 5.36 cmLAAs A4C: 28.71 [id number] A-L A4C: 124.25 mlLALs A4C: 5.63 | | cmRAAs: 22.24 [id number] A-L: 72.63 mlRAESV MOD: 69.73 mlRALs: 5.78 cmAV maxPG: | | 3.96 mmHgAV meanP.17 mmHgAV Vmax: 0.99 m/Cleopatra Vmean: 0.70 m/Cleopatra VTI: 17.42 | | cmAVA Vmax: 2.53 cm2AVA (VTI): 2.79 [id number] Vmax: 0.00 cm2/m2AVAI (VTI): 0.00 | | cm2/m2LVOT maxP.16 mmHgLVOT meanP.27 mmHgLVSI Dopp: 22.36 ml/m2LVSV Dopp: | | 48.74 mlLVOT Vmax: 0.73 m/sLVOT Vmean: 0.54 m/sLVOT VTI: 14.18 cmMV E Juan: | | 0.87 m/sMV DecT: 163.28 msSeptal e': 0.10 m/sSeptal E/e': 8.53Lateral e': 0.14 | | m/sLateral E/e': 6.16RAP: 5 mmHgRVSP: 31.44 mmHgTR maxP.44 mmHgTR Vmax: | | 2.57 m/s Tool Marker: DBSAuthenticated by: [facility] Date/Time: 04-01-2017 | | 18:01:51 IMPRESSION: 1. Atrial fibrillation.2. Overall left ventricular systolic | | function is normal with, an EF between 60 - 65 %.3. The right ventricle is normal in | | size and function.4. The left atrium is moderately enlarged.5. The right atrium is | | mildly enlarged.6. Yihx-ew-uvartwpt mitral regurgitation is present.7. Mild tricuspid | | regurgitation present. | | | |MEASUREMENTS | | | |Ao Diam: 2.92 cm | |IVC: 2.36 cm | |LA Diam: 5.30 cm | |EDV(Teich): 116.09 ml | |IVSd: 1.01 cm | |LVIDd: 4.96 cm | |LVPWd: 0.96 cm | |LVOT Area: 3.43 cm2 | |LVOT Diam: 2.09 cm | |%FS: 35.85 % | |EF(Teich): 65.19 % | |ESV(Teich): 40.40 ml | |LVIDs: 3.18 cm | |SV(Teich): 75.69 ml | |RVIDd: 2.88 cm | |LVEF MOD A2C: 64.19 % | |SV MOD A2C: 59.66 ml | |LVEF MOD A4C: 59.72 % | |SV MOD A4C: 62.14 ml | |EF Biplane: 61.70 % | |LVEDV MOD BP: 98.22 ml | |LVESV MOD BP: 37.61 ml | |LVEDV MOD A2C: 92.93 ml | |LVLd A2C: 8.06 cm | |LVEDV MOD A4C: 104.06 ml | |LVLd A4C: 8.01 cm | |LVESV MOD A2C: 33.27 ml | |LVLs A2C: 6.63 cm | |LVESV MOD A4C: 41.91 ml | |LVLs A4C: 6.82 cm | |LAESV(A-L): 113.04 ml | |LAESV Index (A-L): 51.85 ml/m2 | |LAAs A2C: 24.90 cm2 | |LAESV A-L A2C: 98.04 ml | |LALs A2C: 5.36 cm | |LAAs A4C: 28.71 cm2 | |LAESV A-L A4C: 124.25 ml | |LALs A4C: 5.63 cm | |RAAs: 22.24 cm2 | |RAESV A-L: 72.63 ml | |RAESV MOD: 69.73 ml | |RALs: 5.78 cm | |AV maxP.96 mmHg | |AV meanP.17 mmHg | |AV Vmax: 0.99 m/s | |AV Vmean: 0.70 m/s | |AV VTI: 17.42 cm | |GUANACO Vmax: 2.53 cm2 | |GUANACO (VTI): 2.79 cm2 | |AVAI Vmax: 0.00 cm2/m2 | |AVAI (VTI): 0.00 cm2/m2 | |LVOT maxP.16 mmHg | |LVOT meanP.27 mmHg | |LVSI Dopp: 22.36 ml/m2 | |LVSV Dopp: 48.74 ml | |LVOT Vmax: 0.73 m/s | |LVOT Vmean: 0.54 m/s | |LVOT VTI: 14.18 cm | |MV E Juan: 0.87 m/s | |MV DecT: 163.28 ms | |Septal e': 0.10 m/s | |Septal E/e': 8.53 | |Lateral e': 0.14 m/s | |Lateral E/e': 6.16 | |RAP: 5 mmHg | |RVSP: 31.44 mmHg | |TR maxP.44 mmHg | |TR Vmax: 2.57 m/s | | | |Tool Marker: ARTHUR | |Authenticated by: MARCO CONNELLY MD | |Report Date/Time: 04-01-2017 18:01:51 | | | |IMPRESSION: | |1. Atrial fibrillation. | |2. Overall left ventricular systolic function is normal with, an EF between 60 - 65 %. | |3. The right ventricle is normal in size and function. | |4. The left atrium is moderately enlarged. | |5. The right atrium is mildly enlarged. | |6. Tskl-ay-kpcxnbov mitral regurgitation is present. | |7. Mild tricuspid regurgitation present. | + + documented in this encounter Visit Diagnoses Not on filedocumented in this encounter"
--- OUTSIDE RECORDS SUMMARY | ~2020-08-25 | XMS | Encounter Summary ---
Demographics + + + | Address | [address] [place] [address] Rd | | | [place] [address] | + + + | Home Phone | | + + + | Preferred Language | Unknown | + + + | Marital Status | | + + + | Christianity Affiliation | Unknown | + + + | Race | White | + + + | Ethnic Group | Not or | + + + Author + + + | Author | [facility] | + + + | Organization | [facility] | + + + | Address | Unknown | + + + | Phone | Unavailable | + + + Support + + +---------+ + | Name | Relationship | Address | Phone | + + +---------+ + | José Antonio Craig | ECON | Unknown | | + + +---------+ + Care Team Providers + +------+ + | Care Project Management Intern Name | Role | Phone | + +------+ + | Alverto Olvera MD | PCP | | + +------+ + Reason for Visit + + + | Reason | Comments | + + + | Follow-up visit | | + + + Encounter Details +--------+---------+ + + + | Date | Type | Department | Care Team | Description | +--------+---------+ + + + | 04/07/ | Office | [facility] | Julia Castle, | Low tension glaucoma | | 2019 | Visit | [facility] | ,PhD [address] | of left eye, severe | | | | at [facility] [address] | [address] [place], [place] | stage (Primary Dx); | | | | [facility] | [phone] | Low tension | | | | [facility], | [phone] | glaucoma of right | | | | | | eye, mild stage; | | | | Floor [place], [place] | | Pseudophakia, both | | | | [address] | | eyes | | | | [phone] | | | +--------+---------+ + + + [...] encounter Progress Notes Julia Castle MD,PhD - 04/07/2019 2:40 PM PDTFormatting of this note might be differen t from the original. Glaucoma Clinic Note: 04/07/2019 Glaucoma Diagnosis: Referred by: Shawna Rosales NTG OS>OD HPI: Carley Craig is a 69 y.o. female 2 year follow up - Seeing Dr. Valle in [facility] . Dr. Valle felt the left eye i s worse and referred back to Dr. Castle. Pt has not noticed any changes vision . No eye pa in today. General health good. Every once in awhile some asthma symptoms if a lot of dust. Naomi Valle gave sample or Rhopressa for a week, no improvement. New glasses 4-6 months ago, not much change. Eye medications: Dorzolamide 2x/day OS - 7:30-7:45 am Latanoprost qhs OU - 11 pm Current Medication List Name Sig ALBUTEROL SULFATE HFA 90 MCG/ACTUATION AEROSOL INHALER Ventolin HFA 90 mcg/actuation aeroso l inhaler-- prn APIXABAN 5 MG TABLET Take by mouth. DILTIAZEM ER (XR/XT) 120 MG CAPSULE,EXTENDED RELEASE 24 HR, CONTROLLED TAKE ONE CAPSULE BY MOUTH ONCE DAILY DORZOLAMIDE 2 % EYE DROPS Instill [...] irritation, redness Timolol - asthma, low BP Rhopressa - ineffective Family history of glaucoma? No History of eye trauma? No Diabetes? No Asthma/COPD? Yes, allergic asthma needing inhalers in the past month Hypotension/Shock history? BP runs low (on BBs and diltiazem for A-fib) Migraines/Raynauds? No Steroid use? No Kidney stones? No Driving? Yes, day and night Flomax use? Never Anticoagulation? 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 12 review of systems (in cluding constitutional symptoms, ENT, cardiovascular, respiratory, gastrointestinal, genitou rinary, integumetary, neurologic, psychiatric, endocrine, hematologic, and immunologic) nega tive, except for eye symptoms, allergic asthma, and Afib Past Medical History: Diagnosis Date A-fib (HCC) History reviewed. No pertinent past surgical history. Allergies: Patient has no known allergies. Pt reports that she has never smoked. She has never used smokeless tobacco. Examination Mental status: Alert and oriented x 3 VAsc VAph sc VAcc VAph cc OD 20/20-1 OS 20/25-1 Maribeth BAUER, performed, reviewed and revised the above history, medications, a llergies, as well as performed elements noted in the Base Ophthalmology Exam. VA Motility: Ortho in primary gaze, full OU Slit lamp Exam IOP: OD 15, OS 12 by Applanation at 2:56 PM. Right Left Gonioscopy (03/14/2017) C35f 1+ptm [...] at No Value exists for th e FIRE SAFETY DIRECTOR: EPIC#[id number] Right Left Disc diffusely thin, but intact 0.6 Superior undermining, Inferior erosion 0.9 Macula Normal Normal Vitreous Normal Normal Periphery Optic nerve photos 03/14/2017 Good quality bilateral stereo disc photos taken today documenting nerves as described above , for documentation and future comparison. Visual Field Interpretation 02-09-19 HVF OD essentiall stable; OS with trace progression relative to 2017 study. 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 NTG OS>>OD - IOP within target OU, ONH stable OU. She is on MMT, with several intoleranc es to topical medication. Rhopressa without effect with Dr. Valle. She is also s/p SLT OS. Her HVF OD on 02/09/19 is stable, while the HVF OS appear to have TRACE progression relative to 2017 studies. At this point, the next step in IOP lowering would be a trabeculectomy. Th is is not a trivial surgery for the eye and the patient, given the post op visits required a nd her driving distance. Would prefer to see definitive and repeatable progression prior to recommending this surgery. At this time, would recommend continued conservative management w ith her current topical regimen. 2. Pseudophakia OU 3. A-fib on oral beta joshua and diltiazem, with low systemic BP - though BP has been okay recently Continue dorzolamide BID OS Continue latanoprost qHS OU Follow up with Dr. Valle locally as scheduled RTC here for trabeculectomy consultation if having definitive/clear progression on future H VF testing Julia Castle MD, PhD Solar Power Installer of Ophthalmology [facility] documented in th [...]
--- OUTSIDE RECORDS SUMMARY | ~2020-08-25 | XMS | Encounter Summary ---
Demographics + + + | Address | [address] [place] [address] RD | | | [place] [address] | + + + | Home Phone [...] | José Antonio Craig | ECON | [address] | | | | | [place], [place] | | | | | [address] | | + + + + + | José Antonio Craig | ECON | [address] | | | | | [place], [place] | | | | | [address] | | + + + + + Care Team Providers + +------+ + | Care [employer] Teacher Name | Role | Phone | [...] + + | 03/07/ | Refill | [facility] | Campos Pabon, | Medication Refill | | 2019 | | [facility] | [address] | | | | | [address] | [place] [address] | | | | | [place], [place] | [phone] | | | | | [address] | | | | | | [phone] | | | +--------+--------+ + + + [...] PLEITEZ | | | | | | [id number] | | | | | | | | +--------+---------+ + + + documented as of this encounter Visit Diagnoses Not on filedocumented in this encounter"
[~2020-08-25 13:47] MED LIST: ANTIVERT25 MG PO; ASPIRIN325 MG PO; AUGMENTIN 875-1 EACH PO; CARDIZEM CD120 MG PO; CENTRUM SILVER1 EAC3 PO; ELIQUIS5 MG PO; LATANOPROST2.5 ML OU; LEVOTHROID125 MCG PO; LEXAPRO10 MG PO; METOPROLOL SUC100 MG PO; NEOMYCIN-POLYMY10 M1 OT; NORCO 5-325 TA1 EACH PO; OMEPRAZOLE20 M1 PO; PROAIR HFA8.5 GM IH; ZOVIRAX800 MG PO
[2020-08-25] MEDS ORDERED: ATORVASTATIN CA40 MG PO (14:21)
[2020-08-25] MEDS ORDERED: SYMBICORT 80-10.2 GM INH (14:21)
[2020-08-25] MEDS ORDERED: DORZOLAMIDE HCL10 ML OD (14:21)
== END 2020-08-25 17:10 | disposition home or self-care (01) ==
LOC: ED 13:47
DX: S62.315A Displaced fracture of base of fourth metacarpal bone, left hand, initial encounter for closed fracture (principal); S62.317A Displaced fracture of base of fifth metacarpal bone, left hand, initial encounter for closed fracture; W01.10XA Fall on same level from slipping, tripping and stumbling with subsequent striking against unspecified object, initial encounter; I48.91 Unspecified atrial fibrillation; Z79.899 Other long term (current) drug therapy; K21.9 Gastro-esophageal reflux disease without esophagitis
CPT/HCPCS: 29125; 73130; 99283-25